=== PATIENT | male | born 1955 | race Caucasian/White ===

== ENCOUNTER 2022-02-21 14:17 | Inpatient (IN) ==
[2022-02-21 14:54] LABS: Basophils # (auto) 0.04 K/uL (0-0.2); Basophils % (auto) 0.7 %; Eosinophils # (auto) 0.08 K/uL (0-0.5); Eosinophils % (auto) 1.5 %; Hematocrit (blood only) 42.6 % (42-52); Hemoglobin 13.9 g/dL (14.0-18.0); Immature Granulocytes # (auto) 0.01 K/uL (0.00-0.02); Immature Granulocytes % (auto) 0.2 %; Lymphocytes # (auto) 1.48 K/uL (1.2-3.4); Lymphocytes % (auto) 27.7 %; Mean Corpuscular Hemoglobin 30.1 pg (25-34); Mean Corpuscular Hgb Conc 32.6 g/dL (32-36); Mean Corpuscular Volume 92.2 fL (80-100); Monocytes % (auto) 5.6 %; Neutrophils # (auto) 3.43 K/uL (1.4-6.5); Neutrophils % (auto) 64.3 %; Platelet Count 256 K/uL (130-400); RDW Coefficient of Variation 13.4 % (11.5-14.5); RDW Standard Deviation 45.2 fL (36.4-46.3); Red Blood Count 4.62 M/uL (4.7-6.1); White Blood Count 5.34 K/uL (4.8-10.8)
--- NOTE | 2022-02-21 15:02 | XRay Report ---
XR chest 1V portable HISTORY: Atypical chest pain and tightness. COMPARISON: None. FINDINGS: There are low lung volumes. Small linear density within the right midlung zone favors scarr ing or subsegmental atelectasis. Otherwise, no focal lung consolidations to suggest pneumonia. No renee dence for pulmonary edema. No pleural effusions. No pneumothorax. The cardiac silhouette is normal in size. No rib fractures identified. IMPRESSION: No acute process. ACT 112: Negative or not required by law. Electronically signed by: Trevor Thomas M.D. 02/21/2022 3:00 PM
--- NOTE | 2022-02-21 15:14 | Emergency Department Note ---
Impression & Plan Angina pectoris, unstable, Hypertension, Chest pain ED Provider Note Provider: Kar Archer MD DATE OF SERVICE: 02/21/2022 CHIEF COMPLAINT: Intermittent chest pain HISTORY OF PRESENT ILLNESS: Patient is a 66-year-old gentleman history of hypertension referred here today from cardiology office for intermittent chest pain developing over the past 3 weeks. Patient with some exertional chest discomfort developing over the last several weeks. Evidently was at [facility] last week observed overnight. Referred for cardiology evaluation today. Patient referred here after this with concerns for unstable angina with recommendation for further care here at the hospital and pursuing a cardiac catheterization. Patient with minimal to no chest discomfort on exam. States at times he gets pressure sensation but states it is minimal to not there at this time. Denies any abdominal pain or symptoms here. Denies shortness of breath. Patient denies leg swelling. Patient denies a cardiac history previously himself. REVIEW OF SYSTEMS: A total of 10 review of systems was obtained and negative except as stated above in the HPI. PAST MEDICAL HISTORY: As noted above MEDICATIONS: Reviewed home medications include baby aspirin FMH: Cardiac history reported SOCIAL HISTORY: , non-smoker PHYSICAL EXAM: GENERAL: alert and oriented in no acute distress on stretcher Head: normocephalic and atraumatic EYES: No injection, discharge or icterus. NECK: Trachea midline. Supple. ENT: Mucous membranes pink and moist. LUNGS: Airway patent. No retractions. Breath sounds clear HEART: Regular rate and rhythm. No chest wall tenderness ABDOMEN: Soft and non-tender, without guarding or rebound. SKIN: Acyanotic, warm, dry, without rashes EXTREMITIES: Without swelling, tenderness or deformity NEUROLOGICAL: No focal deficits. No aphasia. No facial droop or slurred speech. Ambulatory. EK bpm normal sinus rhythm without PVC or PAC. No acute ST segment elevation with some anterior T wave inversions as well as questionable V4 V5 T wave changes. QTc 409. CONTINUOUS CARDIAC MONITORING: was ordered and showed a heart rate of 60s-70s bpm in normal sinus rhythm Patient's laboratory studies and imaging reviewed. Differential includes Cardiac ischemia, aortic dissection, pulmonary embolism, pneumothorax, pneumonia, pericarditis, myocarditis, esophageal rupture, GERD, cholecystitis, pancreatitis, musculoskeletal, as well as other pathologies. IMPRESSION/MEDICAL DECISION MAKING: Patient presents with some concerning history of intermittent exertional chest discomfort. Seen by cardiology today concerning for possible unstable angina thus referred here. Patient EKG here initially without STEMI and minimal symptoms now although question some anterior T wave changes. Some nonspecific ST changes in V5 and V4 noted. Troponin and basic labs were sent. Doubt this represents the given his lack of hypoxia or tachycardia. Given additional aspirin beyond the baby aspirin he takes every day. Chest x-ray obtained. Discussed with patient further care at the hospital with cardiac evaluation and possible need for cardiac catheterization given concern for unstable angina. Hospitalist contacted. DIAGNOSIS: Unstable angina, hypertension, chest pain DISPOSITION: Hospitalist will evaluate Patient was agreeable with this plan. Past Med/Surg History Medical History (Updated 02/21/22 @ 21:09 by Kar Archer M.D.) Arthritis Hyperlipidemia Hypertension Hypothyroidism Migraine HX Obesity Pulmonary embolism 2013 S/P SHOULDER SURGERY-WAS ON BLOOD THINNERS X 1 YR-NO ISSUES SINCE Surgical History History of arthroscopy R/L KNEES History of colonoscopy X 4 History of hand surgery TENDON REPAIR FINGER History of hand surgery CYST REMOVAL History of repair of rotator cuff RIGHT 2013 Family History Mother Family history of diabetes mellitus Social History Smoking Status: Never smoker Second Hand Exposure: Yes (FATHER SMOKED); Do You Dip or Chew Tobacco: No; Hx Alcohol Use: Yes Alcohol type: beer Hx Substance Use: No Preferred Language: Lithuanian Communication Ability: Effective [employer] Required: No Beliefs That Will Affect Care: None Current Living Situation: Spouse 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 Other Information That Helps Us Care for You: No Feels Safe at Home: Yes Safety Concerns: Feels Safe At This Time Assistive Devices: Glasses Allergies Allergies Allergy/AdvReac Type Severity Reaction Status Date / Time No Known Allergies Allergy Verified 02/21/22 16:04 Home Meds Home Medications Medication Instructions Recorded Confirmed levothyroxine 125 mcg tablet 125 mcg PO QAM 07/07/21 02/21/22 lisinopril 10 mg tablet 10 mg PO QAM 07/07/21 02/21/22 aspirin 81 mg tablet,delayed 81 mg PO HS 02/21/22 02/21/22 release kqilkoq-rojnnsyemwjcg-uvezypwi 250 1 tab PO Q6H PRN 02/21/22 02/21/22 mg-250 mg-65 mg tablet (Excedrin Extra Strength) pantoprazole 40 mg tablet,delayed 40 mg PO QAM 02/21/22 02/21/22 release rosuvastatin 20 mg tablet 20 mg PO DAILY 02/21/22 02/21/22 Results & Data (ED) Vital Signs Vital Signs - 24 hr 02/21/22 14:23 02/21/22 15:28 Temperature 36.7 C Temperature Source Oral Pulse Rate 73 Pulse Rate [Right Finger] 60 Respiratory Rate 18 18 Respiratory Effort / Characteristics Non-Labored Respiratory Depth Normal Blood Pressure 157/83 H Blood Pressure [Right Arm] 148/71 H Blood Pressure Mean 107 Blood Pressure Mean [Right Arm] 96 Pulse Oximetry 97 95 Oxygen Delivery Method Room Air Room Air Sepsis Recent Fever Within 48 Hours No Sepsis New/Unexplained Change in Mental Status No Sepsis Action Taken by Nursing No Action Required Laboratory Data Result diagrams: 02/21/22 14:37 02/21/22 14:37 Lab Results 02/21/22 02/21/22 02/21/22 Range/Units 14:37 14:37 14:37 WBC 5.34 (4.8-10.8) K/uL RBC 4.62 L (4.7-6.1) M/uL Hgb 13.9 L (14.0-18.0) g/dL Hct 42.6 (42-52) % MCV 92.2 (80-100) fL MCH 30.1 (25-34) pg MCHC 32.6 (32-36) g/dL RDW Std Deviation 45.2 (36.4-46.3) fL RDW Coeff of Erika 13.4 (11.5-14.5) % Plt Count 256 (130-400) K/uL MPV 10.0 (7.4-10.4) fL Immature Gran % (Auto) 0.2 % Neut % (Auto) 64.3 % Lymph % (Auto) 27.7 % Ceiba % (Auto) 5.6 % Eos % (Auto) 1.5 % Baso % (Auto) 0.7 % Neut # (Auto) 3.43 (1.4-6.5) K/uL Lymph # (Auto) 1.48 (1.2-3.4) K/uL Ceiba # (Auto) 0.30 (0.11-0.59) K/uL Eos # (Auto) 0.08 (0-0.5) K/uL Baso # (Auto) 0.04 (0-0.2) K/uL Immature Gran # (Auto) 0.01 (0.00-0.02) K/uL PT 10.8 (9.0-12.0) Seconds INR 1.0 (0.9-1.1) Sodium 138 (136-145) mmol/L Potassium 4.3 (3.5-5.1) mmol/L Chloride 106 (98-107) mmol/L Carbon Dioxide 25 (21-32) mmol/L Anion Gap 7 (3-11) BUN 20 (6-23) mg/dl Creatinine 1.18 (0.6-1.4) mg/dl Est Cr Clr Drug Dosing 84.6 ml/min Est GFR ( Amer) 73.1 ml/min Est GFR (Non-Af Amer) 63.0 ml/min BUN/Creatinine Ratio 16.9 (10-20) Glucose 103 H (70-99(Fasting)) mg/dl Calcium 10.3 H (8.5-10.1) mg/dl Total Bilirubin 0.4 (0.2-1.0) mg/dl AST 19 (13-39) U/L ALT 23 (7-52) U/L Alkaline Phosphatase 78 (34-104) U/L Troponin I High Sens 11.3 (0-20) pg/ml Total Protein 7.5 (6.0-8.3) gm/dl Albumin 4.4 (3.4-5.0) gm/dl Globulin 3.1 (2.5-4.0) gm/dl Albumin/Globulin Ratio 1.4 (0.9-2) Lipase 29 (11-82) U/L TSH (0.300-4.500) uIu/ml SARS-CoV-2, RNA, NAAT (NEGATIVE) 02/21/22 02/21/22 Range/Units 14:37 15:26 WBC (4.8-10.8) K/uL RBC (4.7-6.1) M/uL Hgb (14.0-18.0) g/dL Hct (42-52) % MCV (80-100) fL MCH (25-34) pg MCHC (32-36) g/dL RDW Std Deviation (36.4-46.3) fL RDW Coeff of Erika (11.5-14.5) % Plt Count (130-400) K/uL MPV (7.4-10.4) fL Immature Gran % (Auto) % Neut % (Auto) % Lymph % (Auto) % Ceiba % (Auto) % Eos % (Auto) % Baso % (Auto) % Neut # (Auto) (1.4-6.5) K/uL Lymph # (Auto) (1.2-3.4) K/uL Ceiba # (Auto) (0.11-0.59) K/uL Eos # (Auto) (0-0.5) K/uL Baso # (Auto) (0-0.2) K/uL Immature Gran # (Auto) (0.00-0.02) K/uL PT (9.0-12.0) Seconds INR (0.9-1.1) Sodium (136-145) mmol/L Potassium (3.5-5.1) mmol/L Chloride (98-107) mmol/L Carbon Dioxide (21-32) mmol/L Anion Gap (3-11) BUN (6-23) mg/dl Creatinine (0.6-1.4) mg/dl Est Cr Clr Drug Dosing ml/min Est GFR ( Amer) ml/min Est GFR (Non-Af Amer) ml/min BUN/Creatinine Ratio (10-20) Glucose (70-99(Fasting)) mg/dl Calcium (8.5-10.1) mg/dl Total Bilirubin (0.2-1.0) mg/dl AST (13-39) U/L ALT (7-52) U/L Alkaline Phosphatase (34-104) U/L Troponin I High Sens (0-20) pg/ml Total Protein (6.0-8.3) gm/dl Albumin (3.4-5.0) gm/dl Globulin (2.5-4.0) gm/dl Albumin/Globulin Ratio (0.9-2) Lipase (11-82) U/L TSH 2.518 (0.300-4.500) uIu/ml SARS-CoV-2, RNA, NAAT NEGATIVE (NEGATIVE) Imaging Data Radiologist's Impression: Chest X-Ray 02/21/22 14:41 XR chest 1V portable HISTORY: Atypical chest pain and tightness. COMPARISON: None. FINDINGS: There are low lung volumes. Small linear density within the right midlung zone favors scarring or subsegmental atelectasis. Otherwise, no focal lung consolidations to suggest pneumonia. No evidence for pulmonary edema. No pleural effusions. No pneumothorax. The cardiac silhouette is normal in size. No rib fractures identified. IMPRESSION: No acute process. ACT 112: Negative or not required by law. Electronically signed by: Trevor Thomas M.D. 02/21/2022 3:00 PM Discharge Plan Visit Data Chief Complaint: Abnormal Labs/Diagnostic Testing Stated Complaint: REF, CHEST PAIN, SOB, ABNORMAL EKG ED Provider: Kar Archer Discharge Problem: Angina pectoris, unstable, Hypertension, Chest pain Patient Disposition: Admitted As Inpatient Discharge Instructions Interventions: ED Discharge Assessment Last Done: 02/21/22 19:40
[2022-02-21 15:38] LABS: Prothrombin Time 10.8 Seconds (9.0-12.0)
[2022-02-21 15:49] LABS: Albumin Globulin Ratio 1.4 (0.9-2); Albumin Level 4.4 gm/dl (3.4-5.0); BUN Creatinine Ratio 16.9 (10-20); Bilirubin,Total 0.4 mg/dl (0.2-1.0); Calcium 10.3 mg/dl (8.5-10.1); Creatinine Clr Calc Pharmacy 84.6 ml/min; Est GFR (African American) 73.1 ml/min; Globulin 3.1 gm/dl (2.5-4.0); Potassium 4.3 mmol/L (3.5-5.1); Total Protein 7.5 gm/dl (6.0-8.3); Troponin I High Sensitivity 11.3 pg/ml (0-20)
--- NOTE | 2022-02-21 16:11 | History & Physical Report ---
Date of Service February 21, 2022 Assessment & Plan (1) Chest pain: (2) Abnormal cardiovascular stress test: (3) Hypertension: (4) Hyperlipidemia: (5) Hypothyroidism: (6) Obesity: Plan: This is a 58-year-old male who has significant past medical history of HTN, HLD, obesity, history of provoked PE after shoulder surgery, hypothyroidism, BPH who presents to ED at the referral of cardiology secondary to chest pain x3 weeks. Chest Pain vs. Stable Angina Abnormal Stress test admit to PCU consult cardiology pt had abn stress @ [facility], seen in clinic by Dr. Ford 02/21, referred to ED for likely cardiac cath NPO after midnight 1st trop negative, pt w/o cp cycle trops, repeat ecg will defer repeat echo to cards prn ntg a1c, lipid panel in a.m. HTN continue lisinopril HLD continue statin Morbid Obesity bmi 35.7 encourage lifestyle modifications DVT ppx: SQ Heparin Dispo:PCU, possible cath tomorrow FULL CODE PCP: Cayden Barclay PA-C Pt was seen and examined in collaboration with Dr. Chan, please see addendum History of Present Illness Chief Complaint: Chest pain off and on x 3 weeks Primary Care Provider: Cayden Zayas PA-C This is a 58-year-old male who has significant past medical history of HTN, HLD, obesity, history of provoked PE after shoulder surgery, hypothyroidism, BPH who presents to ED at the referral of cardiology secondary to chest pain x3 weeks. Patient was seen and evaluated in cardiology clinic today by Dr. Ford. He was referred secondary to persistent chest pain. Of significance patient did present to [facility] on 02/14 and was admitted for ischemic work-up. Initial ischemic work-up was unremarkable. He did undergo nuclear stress test images were read as no ischemia, a prior bit bender EKG was positive for ischemic changes with [address] segment depressions in inferior and lateral leads. He was discharged to home and encouraged to follow-up with bit bender as outpatient. In clinic today patient described chest discomfort has been ongoing for 3 weeks. It mostly occurs with exertion in the center of his chest with associated shortness of breath. This was noted when he was on the golf course and taking out the trash. When he would stop and rest this would aid in his discomfort. Baseline he is very active in bowling and golf. He states he tried tums and it seems to help. He describes it as a heavines/dullness. It happened yesterday when he was golfing and stopped with rest. CP is substernal, nonradiating, lasts 5 min or less, assoc with sob, rest and tums helps, exertion makes worse and has never had in past. He denies any recent illness or fever. He has had a cough fo several months due to post nasal drip and what he feels is seasonal allergies. He denies hx of COPD but hx of multiple PE after shoulder surgery. He was on blood thinner for a year and then it stopped. He denies any prior hx of CAD. HE does have strong FH of CAD, sister, mother and maternal grandmother in 70s had sudden . He denies smoking. Does have a couple beers with playing golf. He further denies any dizziness, lightheaded, syncope, palpitations, URI sx, n/v/d, abd pain, change in bowel or bladder habits. He has been on a baby asa x 1 week. He also started pantoprazole 5 days ago w/o improvement. Allergies Allergy/AdvReac Type Severity Reaction Status Date / Time No Known Allergies Allergy Verified 02/21/22 16:04 Home Medications Medication Instructions Recorded Confirmed Type levothyroxine 125 mcg tablet 125 mcg PO QAM 07/07/21 02/21/22 History lisinopril 10 mg tablet 10 mg PO QAM 07/07/21 02/21/22 History aspirin 81 mg tablet,delayed 81 mg PO HS 02/21/22 02/21/22 History release nyhbfmp-uaxzpprujytmj-mefwkufy 250 1 tab PO Q6H PRN 02/21/22 02/21/22 History mg-250 mg-65 mg tablet (Excedrin Extra Strength) pantoprazole 40 mg tablet,delayed 40 mg PO QAM 02/21/22 02/21/22 History release rosuvastatin 20 mg tablet 20 mg PO DAILY 02/21/22 02/21/22 History Past Med/Surg History Medical History (Updated 02/21/22 @ 17:02 by Adriana Santos PA-C) Arthritis Hyperlipidemia Hypertension Hypothyroidism Migraine HX Obesity Pulmonary embolism 2013 S/P SHOULDER SURGERY-WAS ON BLOOD THINNERS X 1 YR-NO ISSUES SINCE Surgical History History of arthroscopy R/L KNEES History of colonoscopy X 4 History of hand surgery TENDON REPAIR FINGER History of hand surgery CYST REMOVAL History of repair of rotator cuff RIGHT 2014 Family History Mother Family history of diabetes mellitus Social History Smoking Status: Never smoker Second Hand Exposure: Yes (FATHER SMOKED); Hx Alcohol Use: Yes Alcohol type: beer and hard liquor Hx Substance Use: No Preferred Language: Indian Communication Ability: Effective Narcotics Agent Required: No Beliefs That Will Affect Care: None Current Living Situation: Spouse 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 Normal insp/exp effort, no accessory muscle use Cardiovascular: RRR, no murmur, no edema Vessels: no JVD or carotid bruit Chest: normal inspection of chest Abdomen: obesity, normal bowel sounds, soft, nontender, no hepatosplenomegaly Musculoskeletal: no cyanosis or clubbing, extremities motor strength 5/5 Skin: no rashes, warm and dry normal turgor Neurologic: PERRL, EOMI, accommodation nl, no face palsy, no dysarthria CN's II-XI intact bilaterally and moves all extremities Psychiatric: A+Ox3, euthymic affect Lymphatic: no cervical or axillary lymphadenopathy : deferred Results & Data Results & Data ([facility]) Vital Signs (Past 12 Hours) Vital Signs Temp Pulse Pulse Resp BP BP Pulse Ox 02/21/22 15:28 60 18 148/71 H 95 02/21/22 14:23 36.7 C 73 18 157/83 H 97 Diagnostic Findings Chest X-Ray 02/21/22 14:41 XR chest 1V portable HISTORY: Atypical chest pain and tightness. COMPARISON: None. FINDINGS: There are low lung volumes. Small linear density within the right midlung zone favors scarring or subsegmental atelectasis. Otherwise, no focal lung consolidations to suggest pneumonia. No evidence for pulmonary edema. No pleural effusions. No pneumothorax. The cardiac silhouette is normal in size. No rib fractures identified. IMPRESSION: No acute process. ACT 112: Negative or not required by law. Electronically signed by: Trevor Thomas M.D. 02/21/2022 3:00 PM ECG Rate (beats per minute): 73 Rhythm: normal sinus Findings: + T-wave inversion (V2) COVID-19 Results Results COVID-19 Adm Lab Results: RBC 4.62 M/uL (4.7-6.1) L 02/21/22 WBC 5.34 K/uL (4.8-10.8) 02/21/22 Hgb 13.9 g/dL (14.0-18.0) L 02/21/22 Hct 42.6 % (42-52) 02/21/22 Plt Count 256 K/uL (130-400) 02/21/22 Neutrophils (%) (Auto) 64.3 % 02/21/22 Lymphocytes (%) (Auto) 27.7 % 02/21/22 Monocytes # (Auto) 0.30 K/uL (0.11-0.59) 02/21/22 Eosinophils # (Auto) 0.08 K/uL (0-0.5) 02/21/22 Immature Granulocyte % (Auto) 0.2 % 02/21/22 Neutrophils # (Auto) 3.43 K/uL (1.4-6.5) 02/21/22 Lymphocytes # (Auto) 1.48 K/uL (1.2-3.4) 02/21/22 Monocytes # (Auto) 0.30 K/uL (0.11-0.59) 02/21/22 Eosinophils # (Auto) 0.08 K/uL (0-0.5) 02/21/22 Basophils # (Auto) 0.04 K/uL (0-0.2) 02/21/22 Immature Granulocyte # (Auto) 0.01 K/uL (0.00-0.02) 02/21/22 Na 138 mmol/L (136-145) 02/21/22 K 4.3 mmol/L (3.5-5.1) 02/21/22 Cl 106 mmol/L (98-107) 02/21/22 CO2 25 mmol/L (21-32) 02/21/22 Anion Gap 7 (3-11) 02/21/22 BUN 20 mg/dl (6-23) 02/21/22 Creatinine 1.18 mg/dl (0.6-1.4) 02/21/22 BUN/Creatinine Ratio 16.9 (10-20) 02/21/22 Glucose Level 103 mg/dl (70-99(Fasting)) H 02/21/22 Ca 10.3 mg/dl (8.5-10.1) H 02/21/22 Total Bilirubin 0.4 mg/dl (0.2-1.0) 02/21/22 AST/SGOT 19 U/L (13-39) 02/21/22 ALT/SGPT 23 U/L (7-52) 02/21/22 Alkaline Phosphatase 78 U/L (34-104) 02/21/22 Total Protein 7.5 gm/dl (6.0-8.3) 02/21/22 Albumin 4.4 gm/dl (3.4-5.0) 02/21/22 Globulin 3.1 gm/dl (2.5-4.0) 02/21/22 Albumin/Globulin Ratio 1.4 (0.9-2) 02/21/22 INR 1.0 (0.9-1.1) 02/21/22 SARS-CoV-2, RNA, NAAT NEGATIVE (NEGATIVE) 02/21/22 Chest X-Ray 02/21/22 Code Status & VTE Plan Code Status FULL CODE VTE Prophylaxis Plan VTE Prophylaxis will be ordered: Yes Supervising Physician Co-Signing Physician Notes Patient is a 58-year-old male with history of hypertension, hyperlipidemia, obesity and other medical problems presents on referral from his primary bit bender for evaluation of ongoing chest pain which has been intermittent, retrosternal since 3 weeks duration patient describes the chest pain like he aviness/pressure-like sensation, nonradiating, associated with shortness of breath, worsens with exertion and occasionally improves with Tums. Patient states having significant family history of coronary artery disease. Patient had stress test 1 week ago which was inconclusive as per patient. Please review HPI for complete details of presentation. Blood work reviewed. TSH level pending. Initial troponin negative. Chest x-ray showed no acute process. EKG showed normal sinus rhythm, nonspecific ST-T wave changes. On exam patient is obese, no apparent distress, normocephalic atraumatic, EOMI, normal breath sounds, clear to auscultation, S1-S2, no murmur, no pedal edema, abdomen soft, nontender, normal bowel sounds, alert, awake, oriented, grossly no focal deficits. Patient is admitted for management of chest pain rule out ACS. Likely stable angina. Continue aspirin, statin. Will trend cardiac enzymes, check lipid panel, A1c. Keep him n.p.o. after midnight for possible cardiac catheterization tomorrow. Will consult cardiology. I personally reviewed the record. Patient is interviewed and examined at bedside. Patient's care is coordinated with Adriana Santos PA-C. Please refer to the documentation above for details of patient's presentation and for discussion of other issues.
[2022-02-21] MEDS ORDERED: POLYETHYLENE (MIRALAX) 17 GM PACK PO PRN (20:26)
[2022-02-21] MEDS ORDERED: NITROGLYCERIN SL 0.4 MG/TAB TAB SL PRN (20:26)
[2022-02-21] MEDS ORDERED: ONDANSETRON INJ 2 MG/ML 2 ML VIAL IV PRN (20:26)
[2022-02-21] MEDS ORDERED: ALUMINUM/MAGNESIUM SUSP 30 ML UDC PO PRN (20:26)
[2022-02-21] MEDS ORDERED: MAGNESIUM HYDROXIDE SUSP 30 ML UDC PO PRN (20:26)
[2022-02-21] MEDS: ASPIRIN 81 MG ECTAB PO SCH (21:42)
[2022-02-21] MEDS: HEPARIN SOD 5,000 UNIT/0.5 ML VIAL SQ SCH (21:42)
[2022-02-21] MEDS: ACETAMINOPHEN 325 MG TAB PO PRN (21:50)
[2022-02-22 02:58] LABS: Albumin Globulin Ratio 1.5 (0.9-2); Albumin Level 3.9 gm/dl (3.4-5.0); BUN Creatinine Ratio 16.5 (10-20); Bilirubin,Total 0.4 mg/dl (0.2-1.0); Calcium 9.7 mg/dl (8.5-10.1); Creatinine Clr Calc Pharmacy 92.3 ml/min; Est GFR (African American) 80.4 ml/min; Est GFR (Non-African American) 69.4 ml/min; Globulin 2.6 gm/dl (2.5-4.0); Magnesium 2.1 mg/dl (1.7-2.4); Potassium 4.3 mmol/L (3.5-5.1); Total Protein 6.5 gm/dl (6.0-8.3)
[2022-02-22 02:59] LABS: Basophils # (auto) 0.03 K/uL (0-0.2); Basophils % (auto) 0.5 %; Eosinophils # (auto) 0.12 K/uL (0-0.5); Eosinophils % (auto) 2.2 %; Hematocrit (blood only) 39.9 % (42-52); Lymphocytes % (auto) 44.8 %; Mean Corpuscular Hemoglobin 29.7 pg (25-34); Mean Corpuscular Hgb Conc 32.6 g/dL (32-36); Mean Corpuscular Volume 91.3 fL (80-100); Mean Platelet Volume 9.5 fL (7.4-10.4); Monocytes # (auto) 0.42 K/uL (0.11-0.59); Monocytes % (auto) 7.5 %; Neutrophils # (auto) 2.51 K/uL (1.4-6.5); Platelet Count 228 K/uL (130-400); RDW Coefficient of Variation 13.4 % (11.5-14.5); RDW Standard Deviation 44.8 fL (36.4-46.3); Red Blood Count 4.37 M/uL (4.7-6.1); White Blood Count 5.58 K/uL (4.8-10.8)
[2022-02-22 03:02] LABS: Troponin I High Sensitivity 8.6 pg/ml (0-20)
[2022-02-22 03:12] LABS: Chol HDL Ratio 3.8 (0-5)
[2022-02-22] MEDS: ACETAMINOPHEN 325 MG TAB PO PRN ×2 (04:42→15:57)
[2022-02-22] MEDS: HEPARIN SOD 5,000 UNIT/0.5 ML VIAL SQ SCH (06:02)
[2022-02-22] MEDS: LEVOTHYROXINE SODIUM 125 MCG TABLET PO SCH (06:02)
[2022-02-22 06:51] LABS: Estimated Average Glucose 114 mg/dl; Hemoglobin A1C 5.6 % (4.5-5.6)
[2022-02-22] MEDS: lisinopril 10 MG TAB PO SCH (07:58)
[2022-02-22] MEDS: PANTOprazole 40 MG TAB PO SCH (07:59)
[2022-02-22] MEDS: ROSUVASTATIN CALCIUM 20 MG TAB PO SCH ×2 (07:59→09:36)
--- NOTE | 2022-02-22 08:25 | Cardiology Consultation ---
Date of Consultation February 22, 2022 Assessment & Plan (1) Angina pectoris, unstable: (2) Hyperlipidemia: (3) Abnormal cardiovascular stress test: (4) Hypertension: I have explained the risk, benefit and intent of the cardiac catheterization including the potential for catheter-based intervention such as balloon angioplasty or intracoronary stenting. The patient is willing to proceed and the procedure will be completed later today. History of Present Illness Attending Physician: Sen Gonzáles MD History of Present Illness This is a 66-year-old male patient who was seen in our clinic yesterday by Dr. Ford. Approximately 3 weeks ago he began to have exertional chest pain. He was admitted last week to [facility] and after an initial work-up he underwent a nuclear stress test that was read as low probability. He has continued to have symptoms of chest pain which are suggestive of angina and was seen in our clinic yesterday. He was sent for admission and consideration for a cardiac catheterization. PAST MEDICAL HISTORY: 1. Hypertension 2. Pulmonary embolism after shoulder surgery 3. Dyslipidemia 4. BPH 5. Elevated BMI Allergies Allergy/AdvReac Type Severity Reaction Status Date / Time No Known Allergies Allergy Verified 02/21/22 16:04 Home Medications Medication Instructions Recorded Confirmed Type levothyroxine 125 mcg tablet 125 mcg PO QAM 07/07/21 02/21/22 History lisinopril 10 mg tablet 10 mg PO QAM 07/07/21 02/21/22 History aspirin 81 mg tablet,delayed 81 mg PO HS 02/21/22 02/21/22 History release scagbss-omlciwxyaffzn-laeolxqz 250 1 tab PO Q6H PRN 02/21/22 02/21/22 History mg-250 mg-65 mg tablet (Excedrin Extra Strength) pantoprazole 40 mg tablet,delayed 40 mg PO QAM 02/21/22 02/21/22 History release rosuvastatin 20 mg tablet 20 mg PO DAILY 02/21/22 02/21/22 History Patient History Medical History Arthritis Hyperlipidemia Hypertension Hypothyroidism Migraine HX Obesity Pulmonary embolism 2013 S/P SHOULDER SURGERY-WAS ON BLOOD THINNERS X 1 YR-NO ISSUES SINCE Surgical History History of arthroscopy R/L KNEES History of colonoscopy X 4 History of hand surgery TENDON REPAIR FINGER History of hand surgery CYST REMOVAL History of repair of rotator cuff RIGHT 2014 Family History Mother Family history of diabetes mellitus Social History Smoking Status: Never smoker Second Hand Exposure: Yes (FATHER SMOKED); Do You Dip or Chew Tobacco: No; Hx Alcohol Use: Yes Alcohol type: beer Hx Substance Use: No Preferred Language: Estonian Communication Ability: Effective Skip Locator Required: No Beliefs That Will Affect Care: None Current Living Situation: Spouse 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 All other 10 point review of systems are negative. Physical Exam Physical Exam: General: no acute distress and stated age Head: normocephalic, no masses, lesions, tenderness or abnormalities Eyes: conjunctiva are pink and non-injected, sclera clear Neck: supple, no adenopathy, no bruits, normal jugular venous pulse, no hepatojugular reflux Chest: normal shape and normal respiratory effort Lungs: clear to auscultation and percussion Cardiac Exam: - regular rate & rhythm, no murmurs gallops or rubs - normal S1, normal S2 Pulses: 2(+) throughout Abdomen: abdomen soft, non-tender, no abnormal masses and no hepatosplenomegaly Musculoskeletal: no gait disturbance, no joint inflammation, no deforming arthritis Extremities: no edema and no cyanosis Neuro: grossly normal exam Results & Data ([facility]) Vital Signs (Past 12 Hours) Vital Signs Temp Pulse Resp BP Pulse Ox 02/22/22 07:21 36.6 C 50 L 16 157/88 H 97 02/22/22 04:41 36.6 C 52 L 16 147/89 H 97 02/21/22 23:38 36.8 C 54 L 18 130/79 98 Laboratory Results Laboratory Results - last 24 hr 02/21/22 02/21/22 02/21/22 14:37 14:37 14:37 WBC 5.34 RBC 4.62 L Hgb 13.9 L Hct 42.6 MCV 92.2 MCH 30.1 MCHC 32.6 RDW Std Deviation 45.2 RDW Coeff of Erika 13.4 Plt Count 256 MPV 10.0 Immature Gran % (Auto) 0.2 Neut % (Auto) 64.3 Lymph % (Auto) 27.7 Addison % (Auto) 5.6 Eos % (Auto) 1.5 Baso % (Auto) 0.7 Neut # (Auto) 3.43 Lymph # (Auto) 1.48 Addison # (Auto) 0.30 Eos # (Auto) 0.08 Baso # (Auto) 0.04 Immature Gran # (Auto) 0.01 PT 10.8 INR 1.0 Sodium 138 Potassium 4.3 Chloride 106 Carbon Dioxide 25 Anion Gap 7 BUN 20 Creatinine 1.18 Est Cr Clr Drug Dosing 84.6 Est GFR ( Amer) 73.1 Est GFR (Non-Af Amer) 63.0 BUN/Creatinine Ratio 16.9 Glucose 103 H Estimat Average Glucose Hemoglobin A1c Calcium 10.3 H Magnesium Total Bilirubin 0.4 AST 19 ALT 23 Alkaline Phosphatase 78 Troponin I High Sens 11.3 Total Protein 7.5 Albumin 4.4 Globulin 3.1 Albumin/Globulin Ratio 1.4 Triglycerides Cholesterol LDL Cholesterol, Calc VLDL Cholesterol, Calc HDL Cholesterol Cholesterol/HDL Ratio Lipase 29 TSH Hepatitis C Ab (EIA) Hep C Ab Signal/Cutoff SARS-CoV-2, RNA, NAAT 02/21/22 02/21/22 02/21/22 14:37 15:26 20:29 WBC RBC Hgb Hct MCV MCH MCHC RDW Std Deviation RDW Coeff of Erika Plt Count MPV Immature Gran % (Auto) Neut % (Auto) Lymph % (Auto) Addison % (Auto) Eos % (Auto) Baso % (Auto) Neut # (Auto) Lymph # (Auto) Addison # (Auto) Eos # (Auto) Baso # (Auto) Immature Gran # (Auto) PT INR Sodium Potassium Chloride Carbon Dioxide Anion Gap BUN Creatinine Est Cr Clr Drug Dosing Est GFR ( Amer) Est GFR (Non-Af Amer) BUN/Creatinine Ratio Glucose Estimat Average Glucose Hemoglobin A1c Calcium Magnesium Total Bilirubin AST ALT Alkaline Phosphatase Troponin I High Sens 10.3 Total Protein Albumin Globulin Albumin/Globulin Ratio Triglycerides Cholesterol LDL Cholesterol, Calc VLDL Cholesterol, Calc HDL Cholesterol Cholesterol/HDL Ratio Lipase TSH 2.518 Hepatitis C Ab (EIA) Hep C Ab Signal/Cutoff SARS-CoV-2, RNA, NAAT NEGATIVE 02/22/22 02/22/22 02/22/22 02:03 02:03 02:03 WBC 5.58 RBC 4.37 L Hgb 13.0 L Hct 39.9 L MCV 91.3 MCH 29.7 MCHC 32.6 RDW Std Deviation 44.8 RDW Coeff of Erika 13.4 Plt Count 228 MPV 9.5 Immature Gran % (Auto) 0.0 Neut % (Auto) 45.0 Lymph % (Auto) 44.8 Addison % (Auto) 7.5 Eos % (Auto) 2.2 Baso % (Auto) 0.5 Neut # (Auto) 2.51 Lymph # (Auto) 2.50 Addison # (Auto) 0.42 Eos # (Auto) 0.12 Baso # (Auto) 0.03 Immature Gran # (Auto) 0.00 PT INR Sodium 137 Potassium 4.3 Chloride 106 Carbon Dioxide 25 Anion Gap 6 BUN 18 Creatinine 1.09 Est Cr Clr Drug Dosing 92.3 Est GFR ( Amer) 80.4 Est GFR (Non-Af Amer) 69.4 BUN/Creatinine Ratio 16.5 Glucose 93 Estimat Average Glucose Hemoglobin A1c Calcium 9.7 Magnesium 2.1 Total Bilirubin 0.4 AST 16 ALT 20 Alkaline Phosphatase 65 Troponin I High Sens 8.6 Total Protein 6.5 Albumin 3.9 Globulin 2.6 Albumin/Globulin Ratio 1.5 Triglycerides 214 H Cholesterol 167 LDL Cholesterol, Calc 80 VLDL Cholesterol, Calc 43 H HDL Cholesterol 44 Cholesterol/HDL Ratio 3.8 Lipase TSH Hepatitis C Ab (EIA) Pending Hep C Ab Signal/Cutoff Pending SARS-CoV-2, RNA, NAAT 02/22/22 02:03 WBC RBC Hgb Hct MCV MCH MCHC RDW Std Deviation RDW Coeff of Erika Plt Count MPV Immature Gran % (Auto) Neut % (Auto) Lymph % (Auto) Addison % (Auto) Eos % (Auto) Baso % (Auto) Neut # (Auto) Lymph # (Auto) Addison # (Auto) Eos # (Auto) Baso # (Auto) Immature Gran # (Auto) PT INR Sodium Potassium Chloride Carbon Dioxide Anion Gap BUN Creatinine Est Cr Clr Drug Dosing Est GFR ( Amer) Est GFR (Non-Af Amer) BUN/Creatinine Ratio Glucose Estimat Average Glucose 114 Hemoglobin A1c 5.6 Calcium Magnesium Total Bilirubin AST ALT Alkaline Phosphatase Troponin I High Sens Total Protein Albumin Globulin Albumin/Globulin Ratio Triglycerides Cholesterol LDL Cholesterol, Calc VLDL Cholesterol, Calc HDL Cholesterol Cholesterol/HDL Ratio Lipase TSH Hepatitis C Ab (EIA) Hep C Ab Signal/Cutoff SARS-CoV-2, RNA, NAAT Medications Administered Current Inpatient Medications Acetaminophen (Acetaminophen 325 Mg Tab) 650 mg PO Q4H PRN PRN Reason: Pain or Fever Stop: 03/23/22 20:25 Last Admin: 02/22/22 04:42 Dose: 650 mg Documented by: Al Hydrox/Mg Hydrox/Simethicone (Aluminum/Magnesium Susp 30 Ml Udc) 15 ml PO Q4H PRN PRN Reason: Dyspepsia Stop: 03/23/22 20:25 Aspirin (Aspirin 81 Mg Ectab) 81 mg PO HS [facility] Stop: 03/23/22 20:59 Last Admin: 02/21/22 21:42 Dose: 81 mg Documented by: Heparin Sodium (Porcine) (Heparin Sod 5,000 Unit/0.5 Ml Vial) 5,000 units SQ Q8 [facility] Stop: 03/23/22 21:59 Last Admin: 02/22/22 06:02 Dose: 5,000 units Documented by: Levothyroxine Sodium (Levothyroxine Sodium 125 Mcg Tablet) 125 mcg PO DAILY@0630 [facility] Stop: 03/24/22 06:29 Last Admin: 02/22/22 06:02 Dose: 125 mcg Documented by: Lisinopril (Lisinopril 10 Mg Tab) 10 mg PO QAM [facility] Stop: 03/24/22 08:59 Last Admin: 02/22/22 07:58 Dose: 10 mg Documented by: Magnesium Hydroxide (Magnesium Hydroxide Susp 30 Ml Udc) 30 ml PO Q12H PRN PRN Reason: Constipation Stop: 03/23/22 20:25 Nitroglycerin (Nitroglycerin Sl 0.4 Mg/Tab Tab) 0.4 mg SL PRN PRN PRN Reason: chest pain Stop: 03/23/22 20:25 Ondansetron HCl (Ondansetron Inj 2 Mg/Ml 2 Ml Vial) 4 mg IV Q6H PRN PRN Reason: Nausea Stop: 03/23/22 20:25 Pantoprazole Sodium (Pantoprazole 40 Mg Tab) [facility] Stop: 03/24/22 08:59 Last Admin: 02/22/22 07:59 Dose: 40 mg Documented by: Polyethylene Glycol (Polyethylene (Miralax) 17 Gm Pack) 17 gm PO DAILY PRN PRN Reason: Constipation Stop: 03/23/22 20:25 Rosuvastatin Calcium (Rosuvastatin Calcium 20 Mg Tab) 20 mg PO DAILY [facility] Stop: 03/24/22 08:59 (1) Hypertension Hypertension type: unspecified Qualified Code(s): I10 - Essential (primary) hypertension
[2022-02-22] MEDS ORDERED: Nursing to Pharmacy Communication SCH (09:15)
[2022-02-22] MEDS ORDERED: niCARdipine HCL INJ 2.5 MG/ML 10 ML AMP ONE (12:12)
[2022-02-22] MEDS ORDERED: fentaNYL citrate 100 MCG/2 ML VIAL ONE (12:12)
[2022-02-22] MEDS ORDERED: HEPARIN (PORCINE) 1000 UNIT/ML 10 ML (CATH LAB USE ONLY) ONE ×2 (12:12→13:53)
[2022-02-22] MEDS ORDERED: MIDAZOLAM HCL 1 MG/ML 2ML VIAL ONE (12:12)
[2022-02-22] MEDS ORDERED: NITROGLYCERIN/D5W 100MCG/ML 20ML SYR ONE (12:13)
[2022-02-22] MEDS ORDERED: ADENOSINE IV SOLN 3 MG/ML 20 ML VIAL IV ONE ×2 (13:08→14:08)
--- NOTE | 2022-02-22 13:14 | Hospitalist Progress Note ---
Date of Service February 22, 2022 Assessment & Plan (1) Chest pain: (2) Abnormal cardiovascular stress test: (3) Hypertension: (4) Hyperlipidemia: (5) Hypothyroidism: (6) Obesity: Plan: This is a 58-year-old male who has significant past medical history of HTN, HLD, obesity, history of provoked PE after shoulder surgery, hypothyroidism, BPH who presents to ED at the referral of cardiology secondary to chest pain x3 weeks. Chest pain, concerning for unstable angina. recent abnormal stress test a week ago - seen by cardio. Plan for cardiac cath later today. NPO for the same. Essential hypertension- continue lisinopril Hyperlipidemia- continue statin Hypothyroidism- continue synthroid Dispo- Pending cardiac cath today. DVT ppx- sc heparin Admission and Anticipated Discharge Date Admission Date: February 21, 2022 Subjective He feels fine. Denies any chest pain currently at rest. He is awaiting cardiac cath- states three more ahead of him. Physical Exam Physical Exam: General: Sitting comfortably in bed, not in distress, on room air HEENT: EOMI, SHERMAN, MMM Chest: Clear breath sounds bilaterally, no wheezes or crackles CVS: Regular rate and rhythm, normal heart sounds, no murmur Abdomen: Soft, non tender, not distended, normal bowel sounds Neuro: Awake, alert, oriented, conversing well, non focal Extremities: No cyanosis, clubbing or edema Results & Data Results & Data ([facility]) Vital Signs (Past 12 Hours) Vital Signs Temp Pulse Resp BP Pulse Ox 02/22/22 11:17 36.5 C 54 L 18 171/92 H 98 02/22/22 07:21 36.6 C 50 L 16 157/88 H 97 02/22/22 04:41 36.6 C 52 L 16 147/89 H 97 Laboratory Results Short CBC 02/21/22 02/22/22 Range/Units 14:37 02:03 WBC 5.34 5.58 (4.8-10.8) K/uL Hgb 13.9 L 13.0 L (14.0-18.0) g/dL Hct 42.6 39.9 L (42-52) % Plt Count 256 228 (130-400) K/uL BMP 02/21/22 02/22/22 14:37 02:03 Sodium 138 137 Potassium 4.3 4.3 Chloride 106 106 Carbon Dioxide 25 25 BUN 20 18 Creatinine 1.18 1.09 Glucose 103 H 93 Calcium 10.3 H 9.7 Liver Function 02/21/22 02/22/22 Range/Units 14:37 02:03 Total Bilirubin 0.4 0.4 (0.2-1.0) mg/dl AST 19 16 (13-39) U/L ALT 23 20 (7-52) U/L Alkaline Phosphatase 78 65 (34-104) U/L Albumin 4.4 3.9 (3.4-5.0) gm/dl Medications Administered Current Inpatient Medications Acetaminophen (Acetaminophen 325 Mg Tab) 650 mg PO Q4H PRN PRN Reason: Pain or Fever Stop: 03/23/22 20:25 Last Admin: 02/22/22 04:42 Dose: 650 mg Documented by: Al Hydrox/Mg Hydrox/Simethicone (Aluminum/Magnesium Susp 30 Ml Udc) 15 ml PO Q4H PRN PRN Reason: Dyspepsia Stop: 03/23/22 20:25 Aspirin (Aspirin 81 Mg Ectab) 81 mg PO HS [facility] Stop: 03/23/22 20:59 Last Admin: 02/21/22 21:42 Dose: 81 mg Documented by: Heparin Sodium (Porcine) (Heparin Sod 5,000 Unit/0.5 Ml Vial) 5,000 units SQ Q8 [facility] Stop: 03/23/22 21:59 Last Admin: 02/22/22 06:02 Dose: 5,000 units Documented by: Levothyroxine Sodium (Levothyroxine Sodium 125 Mcg Tablet) 125 mcg PO DAILY@0630 [facility] Stop: 03/24/22 06:29 Last Admin: 02/22/22 06:02 Dose: 125 mcg Documented by: Lisinopril (Lisinopril 10 Mg Tab) 10 mg PO QAM [facility] Stop: 03/24/22 08:59 Last Admin: 02/22/22 07:58 Dose: 10 mg Documented by: Magnesium Hydroxide (Magnesium Hydroxide Susp 30 Ml Udc) 30 ml PO Q12H PRN PRN Reason: Constipation Stop: 03/23/22 20:25 Nitroglycerin (Nitroglycerin Sl 0.4 Mg/Tab Tab) 0.4 mg SL PRN PRN PRN Reason: chest pain Stop: 03/23/22 20:25 Ondansetron HCl (Ondansetron Inj 2 Mg/Ml 2 Ml Vial) 4 mg IV Q6H PRN PRN Reason: Nausea Stop: 03/23/22 20:25 Pantoprazole Sodium (Pantoprazole 40 Mg Tab) 40 mg PO QAM [facility] Stop: 03/24/22 08:59 Last Admin: 02/22/22 07:59 Dose: 40 mg Documented by: Polyethylene Glycol (Polyethylene (Miralax) 17 Gm Pack) 17 gm PO DAILY PRN PRN Reason: Constipation Stop: 03/23/22 20:25 Rosuvastatin Calcium (Rosuvastatin Calcium 20 Mg Tab) 20 mg PO HS [facility] Stop: 03/24/22 08:59 (1) Chest pain Chest pain type: unspecified Qualified Code(s): R07.9 - Chest pain, unspecified (2) Hypertension Hypertension type: unspecified Qualified Code(s): I10 - Essential (primary) hypertension
--- NOTE | 2022-02-22 13:42 | Cardiac Catheterization ---
Date of Service February 22, 2022 Cardiac Cath Report Cardiac Cath Report Procedure: 1. Left heart catheterization 2. Coronary angiography 3. Left ventriculogram History: This is a 66-year-old male patient who has been having exertional angina for several weeks. He was referred for cardiac catheterization. Procedure summary: After informed consent was obtained the patient was brought to the cardiac catheterization lab where he was prepped and draped in the usual manner for a right radial approach. Preformed 5 Albanian diagnostic catheters were utilized for the coronary angiograms. A 5 Albanian pigtail catheter was utilized for the left heart pressures and left ventriculogram. Following the procedure the patient underwent coronary intervention. ACC data: Start time 12:55 End time 13:20 Opening aortic pressure 138/82 Closing aortic pressure 153/78 Left ventricular pressure 150/5 Sedation 1 mg intravenous Versed IV fluid 55 cc normal saline Contrast 99 cc Optiray Fluoroscopy time 6.4 minutes Radiation 1511 mGy DAP 146.24 Lara per centimeter squared Right dominant system AUC score 7 Coronary angiography: Selective injections of the left coronary artery revealed the left main trunk to be patent. The LAD extends around the apex of the heart. The LAD gives off a single large first diagonal branch. In the proximal portion of the LAD there is a 50 to 70% eccentric stenoses. There is a large ramus branch from the left circumflex artery which has a 50 to 60% stenosis proximally. The left circumflex then continues on and supplies several small marginal branches. The remainder of the left circumflex artery is widely patent. Selective injections of the right coronary artery reveal it to be dominant. The right coronary artery is smooth in appearance widely patent and within normal limits. Left ventriculogram: The left ventricle is of normal size with normal systolic function. The mitral valve is competent. The aortic root and ascending aorta have normal morphology and diameter. Summary: The patient has a borderline proximal LAD stenoses that should undergo FFR or IFR. The proximal ramus should undergo the same. Coronary intervention will depend on the outcome of these measurements. Recommendations: Potential coronary intervention on the proximal LAD and ramus.
[2022-02-22] MEDS ORDERED: CLOPIDOGREL BISULFATE 300 MG TAB ONE (14:12)
[2022-02-22] MEDS ORDERED: SODIUM CHLORIDE 0.9% 1000ML 500 ML IV SCH (14:45)
--- NOTE | 2022-02-22 14:48 | Post Anesthesia Assessment ---
Date of Service February 22, 2022 Post Sedation Assessment Vital Signs Temp Pulse Resp BP Pulse Ox 02/22/22 14:45 53 L 16 157/71 H 98 02/22/22 14:30 47 L 16 154/85 H 98 02/22/22 11:17 97.7 F 54 L 18 171/92 H 98 02/22/22 07:21 97.9 F 50 L 16 157/88 H 97 02/22/22 04:41 97.9 F 52 L 16 147/89 H 97 02/21/22 23:38 98.2 F 54 L 18 130/79 98 02/21/22 20:10 98.4 F 55 L 18 145/97 H 98 02/21/22 17:19 57 L 17 158/89 H 97 02/21/22 15:28 60 18 148/71 H 95 Recovery Score Activity: Moves 4 extremities Respiration: Deep Breath/Cough Circulation: +/-20% PreAnes Value Consciousness: Fully Awake Oxygen Saturation: > 92% On Room Air Post Anesthesia Score: 10 Discharge Sedation Level of Care: Fast Track Phase II Post Sedation Plan On clinical assessment, the patient appears to have tolerated the sedation without complications. Patient is recovering as anticipated. Patient will continue to be monitored by nursing and may be discharged when sedation discharge criteria are met per below protocol. Upon Completions of procedure up to 15 minutes continue every 5 minute vital signs and the P.A.R. score; then discharge to a Phase I or Fast Track to Phase II per the following guidelines: * Discharge Patient to appropriate Phase II area if PAR is 8 or greater or return to pre- procedure baseline. The post - procedure orders will be as dir ected. * If PAR score is less than 8 or not return to pre-procedure baseline then patient will follow Phase I monitoring till PAR is reached for Phase II. The Phase I may be done in procedure room or may call to secure a Phase I area. * If naloxone or flumazenil are used for reversal, hold in Phase I for continued monitoring from when last reversal dose was given for a minimum of 60 minutes or longer pending the nurse and/or physician discretion of patient condition before discharge to Phase II. Please call the Sedation Physician to re-evaluate and complete post-note for discharge to Phase II area. Do NOT discharge from procedure sedation or Phase 1 until post- sedation evaluation note is complete by procedure /sedation MD Sedation Discharge Instructions to be given to the patient at discharge to home.
--- NOTE | 2022-02-22 14:50 | Post Operative Brief Note ---
Cardiology Brief Post Op Date of Surgery February 22, 2022 Pre & Post Diagnosis Operation Date: 02/22/22 12:30 <No data on this case meets the specified criteria> Procedure PCI to LAD Spring Repairer Helper Hand Leonardo Nayak MD Coffee Roaster Eva Estimated Blood Loss 10 Findings See Below Severe proximal LAD (80% by IVUS, MLA 3.5 mm2). Non-obstructive proximal ramus disease (FFR 0.9) Successful PCI of proximal LAD with single MACKENZIE (3.0 x 23 Xience; post-dilated with 3.5 NC). Drains Other Anesthesia Type RN Sedation Complications none Disposition Accompanied Patient To Recovery: No Disposition: PCU Overlapping Procedure I was present for: the critical portions of procedure. I was immediately available: during the entire case. Back up surgeon: was not required during procedure.
--- NOTE | 2022-02-22 17:13 | Cardiac Catheterization ---
[facility] Data: Precision Lens Generator Cardiac Status Clinical evaluation leading to the procedure CAD Presenation: Unstable angina Anginal Classification: CCS III Diagnostic Physicians Name: Leonardo Nayak MD Closure Device Recommendations: PCI without planned CABG Cardiac Cath Procedure Full Procedure Date February 22, 2022 Pre-Procedure Diagnosis Pre-Procedure Diagnosis: Angina AUC Score AUC Score: 7 Post-Procedure Diagnosis Post-Procedure Diagnosis: Severe CAD and Successful PCI Procedure(s) Performed Procedure(s) Performed: Coronary Angiography, Drug Eluting Stent, IVUS and Fractional Flow [place] Price Analyst Leonardo Nayak MD Propellant Charge Loader(s) Control Room Supervisor Estimated Blood Loss Estimated Blood Loss: 10 Medication(s) Medication(s): Clopidogrel, Fentanyl, Heparin, Nicardipine, Nitroglycerin and Versed Summary of Findings Indication: Refractory angina Access: 6 Fr right radial artery Catheters: EBU 3.5 guide Findings: For full details of patient's coronary angiography please see cath report dictated by Dr. Barrera. Briefly, patient found to have a 70% proximal, calcified LAD stenosis and a intermediate proximal ramus stenosis. Decision to proceed FFR and possible PCI. -- PCI -- Antithrombotic therapy: Heparin, clopidogrel Procedure: Left main cannulated with EBU 3.5 guide Pre-procedure flow AIME 3 BMW wire passed across lesion into distal LAD Prowater wire placed into distal ramus ACIST Catheter placed across LAD stenosis -Pd/Pa 0.87 ACIST Catheter placed across removed from LAD and placed across ramus stenosis -Pd/Pa 0.94 FFR 0.90 Decision to proceed with PCI of LAD [place] IVUS catheter placed across proximal LAD stenosis into mid vessel. Pullback revealed diffuse mild to moderately calcified disease up to 80% (MLA 3.5 mm) in proximal LAD extending back to ostium. No significant left main disease. Ostial/proximal LAD stented with 3.0 x 23 mm Xience drug-eluting stent ending before takeoff of first diagonal Stent post-dilated with 3.5 noncompliant balloon Repeat IVUS showed well apposed, well-expanded stent with no apparent edge complications. Residual moderate disease at bifurcation with D1 Repeat Pd/Pa increased to 0.94 IC vasodilators administered for spasm Post procedure AIME 3 flow, stent well expanded with minimal residual stenosis and no apparent cardiac complications. Arterial Closure: TR band Summary: 1. Multivessel coronary artery disease -70% calcified, proximal LAD (positive by Pd/Pa, 80% by IVUS). 50 to 60% proximal ramus (nonobstructive by FFR 0.90). 2. Successful PCI of proximal LAD with single drug-eluting stent (3.0 x 23 mm Xience; postdilated with 3.5 NC). Recommendations: To PCU for continued monitoring Loaded with clopidogrel 600 mg in Precision Lens Generator Continue dual-antiplatelet therapy for at least 6 months Continue statin, and ASCVD risk factor modification Consult cardiac Rehab Hemodynamics Rest Ao:: 138/82/106 Final Ao: 113/66/85 LV: -- Recommendations Recommendations: PCI without planned CABG Specimens Specimens: None Radiation Exposure (mGy) 3507 Contrast (mls) 140 Anesthesia moderate [id number] Procedural Complication(s) None Disposition PCU I attest to the content of the Intraoperative Record and any orders documented therein. Any exceptions are noted below. [facility] Card Cath Procedure Codes Cardiac Catheterization Procedure 1: Cardiovascular Cath Procedures: 76652 (Doppler) Pressure Wire Procedure 2: Cardiovascular Cath Procedures: 89330 (Doppler) Pressure Wire Addl vessel Therapeutic Services & Ancillary Proc Procedure 1: Cardiovascular Tx and Anc Procedures: 72130 IV Ultrasound (Coronary or Graft) Moderate Sedation Procedure 1: Sedation/Anesthesia: 25794 Mod Sedation by the same physician; Ea [id number] Minutes Stenting Procedure 1: Cardiovascular Stent Procedures: 15199 Perc transcatheter placement of intracoronary stent(s), with ang PG Care Time/CCT Total # of Minutes Spent Total Time Spent with Patient: Total time spent is greater than 50% in coordination of care (as documented) at patient's floor/unit and/or counseling patient:
[2022-02-22] MEDS: ASPIRIN 81 MG ECTAB PO SCH (19:38)
[2022-02-22] MEDS ORDERED: ROSUVASTATIN CALCIUM 20 MG TAB PO SCH (21:00)
--- NOTE | 2022-02-22 22:00 | Electrocardiogram Report ---
Test Reason : Blood Pressure : / mmHG Vent. Rate : 073 BPM Atrial Rate : 073 BPM P-R Int : 148 ms QRS Dur : 104 ms QT Int : 372 ms P-R-T Axes : 050 046 087 degrees QTc Int : 409 ms Normal sinus rhythm Nonspecific ST and T wave abnormality Abnormal ECG No previous ECGs available Confirmed by Jorje Murillo ([id number]) on 02/22/2022 9:59:41 PM Referred By: REFERRED SELF Confirmed By:Jorje Murillo
--- NOTE | 2022-02-23 06:13 | Electrocardiogram Report ---
Test Reason : Blood Pressure : / mmHG Vent. Rate : 051 BPM Atrial Rate : 051 BPM P-R Int : 158 ms QRS Dur : 106 ms QT Int : 426 ms P-R-T Axes : 025 023 091 degrees QTc Int : 392 ms Sinus bradycardia Nonspecific ST and T wave abnormality Abnormal ECG When compared with ECG of 21-FEB-2022 14:32, No significant change was found Confirmed by Jorje Murillo ([id number]) on 02/23/2022 6:13:29 AM Referred By: REFERRED SELF Confirmed By:Jorje Murillo
[2022-02-23] MEDS: LEVOTHYROXINE SODIUM 125 MCG TABLET PO SCH (06:35)
[2022-02-23 07:17] LABS: BUN Creatinine Ratio 14.6 (10-20); Calcium 9.7 mg/dl (8.5-10.1); Creatinine Clr Calc Pharmacy 96.9 ml/min; Est GFR (African American) 86.1 ml/min; Est GFR (Non-African American) 74.3 ml/min; Potassium 4.3 mmol/L (3.5-5.1)
[2022-02-23] MEDS: lisinopril 10 MG TAB PO SCH (08:33)
[2022-02-23] MEDS: PANTOprazole 40 MG TAB PO SCH (08:34)
[2022-02-23] MEDS ORDERED: CLOPIDOGREL BISULFATE 75 MG TAB PO SCH (09:00)
--- NOTE | 2022-02-23 10:00 | Cardiology Progress Note ---
Date of Service February 23, 2022 Assessment & Plan (1) Angina pectoris, unstable: (2) Hyperlipidemia: (3) Abnormal cardiovascular stress test: (4) Hypertension: (5) Stented coronary artery: Plan: The patient can be discharged today. I will arrange follow-up with our clinic. Admission and Anticipated Discharge Date Admission Date: February 21, 2022 Subjective The patient had an uneventful night. Review of Systems Review of Systems: Review of Systems: See HPI for pertinent positives. All other 10 point review of systems are negative. Physical Exam Physical Exam: General: no acute distress and stated age Head: normocephalic, no masses, lesions, tenderness or abnormalities Eyes: conjunctiva are pink and non-injected, sclera clear Neck: supple, no adenopathy, no bruits, normal jugular venous pulse, no hepatojugular reflux Chest: normal shape and normal respiratory effort Lungs: clear to auscultation and percussion Cardiac Exam: - regular rate & rhythm, no murmurs gallops or rubs - normal S1, normal S2 Pulses: 2(+) throughout Abdomen: abdomen soft, non-tender, no abnormal masses and no hepatosplenomegaly Musculoskeletal: no gait disturbance, no joint inflammation, no deforming arthritis Extremities: no edema and no cyanosis Neuro: grossly normal exam Results & Data ([facility]) Vital Signs (Past 12 Hours) Vital Signs Temp Pulse Pulse Resp BP Pulse Ox 02/23/22 07:22 51 L 02/23/22 07:15 36.5 C 56 L 19 147/94 H 98 02/23/22 04:27 36.4 C L 54 L 16 125/78 97 02/22/22 23:36 36.6 C 54 L 16 134/82 98 Laboratory Results Laboratory Results - last 24 hr 02/22/22 02/22/22 02/22/22 02:03 13:50 14:08 Activ Coag Time Kaolin 190 H 254 H Sodium Potassium Chloride Carbon Dioxide Anion Gap BUN Creatinine Est Cr Clr Drug Dosing Est GFR ( Amer) Est GFR (Non-Af Amer) BUN/Creatinine Ratio Glucose Calcium Hepatitis C Ab (EIA) NON-REACTIVE Hep C Ab Signal/Cutoff 0.01 02/23/22 06:14 Activ Coag Time Kaolin Sodium 136 Potassium 4.3 Chloride 105 Carbon Dioxide 22 Anion Gap 9 BUN 15 Creatinine 1.03 Est Cr Clr Drug Dosing 96.9 Est GFR ( Amer) 86.1 Est GFR (Non-Af Amer) 74.3 BUN/Creatinine Ratio 14.6 Glucose 100 H Calcium 9.7 Hepatitis C Ab (EIA) Hep C Ab Signal/Cutoff Medications Administered Current Inpatient Medications Acetaminophen (Acetaminophen 325 Mg Tab) 650 mg PO Q4H PRN PRN Reason: Pain or Fever Stop: 03/23/22 20:25 Last Admin: 02/22/22 15:57 Dose: 650 mg Documented by: Al Hydrox/Mg Hydrox/Simethicone (Aluminum/Magnesium Susp 30 Ml Udc) 15 ml PO Q4H PRN PRN Reason: Dyspepsia Stop: 03/23/22 20:25 Aspirin (Aspirin 81 Mg Ectab) 81 mg PO [facility] Stop: 03/23/22 20:59 Last Admin: 02/22/22 19:38 Dose: 81 mg Documented by: Clopidogrel Bisulfate (Clopidogrel Bisulfate 75 Mg Tab) 75 mg PO [facility] Stop: 03/25/22 08:59 Last Admin: 02/23/22 08:34 Dose: 75 mg Documented by: Heparin Sodium (Porcine) (Heparin Sod 5,000 Unit/0.5 Ml Vial) 5,000 units SQ Q8 [facility] Stop: 03/23/22 21:59 Last Admin: 02/22/22 06:02 Dose: 5,000 units Documented by: Levothyroxine Sodium (Levothyroxine Sodium 125 Mcg Tablet) 125 mcg PO DAILY@0630 [facility] Stop: 03/24/22 06:29 Last Admin: 02/23/22 06:35 Dose: 125 mcg Documented by: Lisinopril (Lisinopril 10 Mg Tab) [facility] [place] Stop: 03/24/22 08:59 Last Admin: 02/23/22 08:33 Dose: 10 mg Documented by: Magnesium Hydroxide (Magnesium Hydroxide Susp 30 Ml Udc) 30 ml PO Q12H PRN PRN Reason: Constipation Stop: 03/23/22 20:25 Nitroglycerin (Nitroglycerin Sl 0.4 Mg/Tab Tab) 0.4 mg SL PRN PRN PRN Reason: chest pain Stop: 03/23/22 20:25 Ondansetron HCl (Ondansetron Inj 2 Mg/Ml 2 Ml Vial) 4 mg IV Q6H PRN PRN Reason: Nausea Stop: 03/23/22 20:25 Pantoprazole Sodium (Pantoprazole 40 Mg Tab) 40 mg PO QAM [facility] Stop: 03/24/22 08:59 Last Admin: 02/23/22 08:34 Dose: 40 mg Documented by: Polyethylene Glycol (Polyethylene (Miralax) 17 Gm Pack) 17 gm PO DAILY PRN PRN Reason: Constipation Stop: 03/23/22 20:25 Rosuvastatin Calcium (Rosuvastatin Calcium 20 Mg Tab) 20 mg PO HS [facility] Stop: 03/24/22 08:59 Last Admin: 02/22/22 19:37 Dose: 20 mg Documented by: (1) Hypertension Hypertension type: unspecified Qualified Code(s): I10 - Essential (primary) hypertension
--- NOTE | 2022-02-23 10:26 | Discharge Summary ---
Date of Service February 23, 2022 Admission HPI Per Admitting Provider This is a 58-year-old male who has significant past medical history of HTN, HLD, obesity, history of provoked PE after shoulder surgery, hypothyroidism, BPH who presents to ED at the referral of cardiology secondary to chest pain x3 weeks. Patient was seen and evaluated in cardiology clinic today by Dr. Ford. He was referred secondary to persistent chest pain. Of significance patient did present to [facility] on 02/14 and was admitted for ischemic work- up. Initial ischemic work-up was unremarkable. He did undergo nuclear stress test images were read as no ischemia, a prior accountant machine processing EKG was positive for ischemic changes with [address] segment depressions in inferior and lateral leads. He was discharged to home and encouraged to follow-up with accountant machine processing as outpatient. In clinic today patient described chest discomfort has been ongoing for 3 weeks. It mostly occurs with exertion in the center of his chest with associated shortness of breath. This was noted when he was on the golf course and taking out the trash. When he would stop and rest this would aid in his discomfort. Baseline he is very active in bowling and golf. He states he tried tums and it seems to help. He describes it as a heavines/dullness. It happened yesterday when he was golfing and stopped with rest. CP is substernal, nonradiating, lasts 5 min or less, assoc with sob, rest and tums helps, exertion makes worse and has never had in past. He denies any recent illness or fever. He has had a cough fo several months due to post nasal drip and what he feels is seasonal allergies. He denies hx of COPD but hx of multiple PE after shoulder surgery. He was on blood thinner for a year and then it stopped. He denies any prior hx of CAD. HE does have strong FH of CAD, sister, mother and maternal grandmother in 70s had sudden . He denies smoking. Does have a couple beers with playing golf. He further denies any dizziness, lightheaded, syncope, palpitations, URI sx, n/v/d, abd pain, change in bowel or bladder habits. He has been on a baby asa x 1 week. He also started pantoprazole 5 days ago w/o improvement. Admission Exam Per Admitting Provider Constitutional: WD/WN, vitals as above, NAD, sitting up in bed, pleasant, conversing easily Head: Normocephalic, Atraumatic Eyes: PERRL, conjunctivae normal, anicteric sclerae ENMT: external ear and nose normal, oropharynx normal Neck: trachea midline, no thyromegaly normal visual inspection Respiratory: normal respiratory effort, lungs clear to auscultation, no wheeze, rales, rhonchi. Normal insp/exp effort, no accessory muscle use Cardiovascular: RRR, no murmur, no edema Vessels: no JVD or carotid bruit Chest: normal inspection of chest Abdomen: obesity, normal bowel sounds, soft, nontender, no hepatosplenomegaly Musculoskeletal: no cyanosis or clubbing, extremities motor strength 5/5 Skin: no rashes, warm and dry normal turgor Neurologic: PERRL, EOMI, accommodation nl, no face palsy, no dysarthria CN's II-XI intact bilaterally and moves all extremities Psychiatric: A+Ox3, euthymic affect Lymphatic: no cervical or axillary lymphadenopathy : deferred Principal Diagnosis Unstable angina, CAD Discharge Exam General: Sitting comfortably in bed, not in distress, on room air HEENT: EOMI, SHERMAN, MMM Chest: Clear breath sounds bilaterally, no wheezes or crackles CVS: Regular rate and rhythm, normal heart sounds, no murmur Abdomen: Soft, non tender, not distended, normal bowel sounds Neuro: Awake, alert, oriented, conversing well, non focal Extremities: No cyanosis, clubbing or edema Ambulated independently without issues. Discharge Data Allergies Allergy/AdvReac Type Severity Reaction Status Date / Time No Known Allergies Allergy Verified 02/21/22 16:04 Consultations 02/21/22 15:53 ED Decision to Admit Stat 02/21/22 16:06 Consult Cardiology Routine 02/22/22 14:46 Consult Cardiac Rehabilitation Routine Procedures Performed Operation Date: 02/22/22 12:30 Actual Procedures s Cineradiography w/Routine Exam - Merrill Barrera, DO p Cath, Left with Cors and Vent - Merrill Barrera, DO s IVUS Coronary Single Vessel - Alonzo Nayak MD s Fraction Flow Purcell SGL Ves - Alonzo Nayak MD s Fraction Flow Purcell Addl Ves - Alonzo Nayak MD s Drug Eluting Stent SGl Vessel - Alonzo Nayak MD Ordered Studies 02/22/22 12:10 CL Cath Imgs for PACS use only Stat 02/23/22 07:35 CL IVUS Coronary Single Vessel Routine Laboratory Results WBC 5.58 K/uL (4.8-10.8) 02/22/22 02:03 RBC 4.37 M/uL (4.7-6.1) L 02/22/22 02:03 Hgb 13.0 g/dL (14.0-18.0) L 02/22/22 02:03 Hct 39.9 % (42-52) L 02/22/22 02:03 MCV 91.3 fL (80-100) 02/22/22 02:03 MCH 29.7 pg (25-34) 02/22/22 02:03 MCHC 32.6 g/dL (32-36) 02/22/22 02:03 RDW Std Deviation 44.8 fL (36.4-46.3) 02/22/22 02:03 RDW Coeff of Erika 13.4 % (11.5-14.5) 02/22/22 02:03 Plt Count 228 K/uL (130-400) 02/22/22 02:03 MPV 9.5 fL (7.4-10.4) 02/22/22 02:03 Immature Gran % (Auto) 0.0 % 02/22/22 02:03 Neut % (Auto) 45.0 % 02/22/22 02:03 Lymph % (Auto) 44.8 % 02/22/22 02:03 Crenshaw % (Auto) 7.5 % 02/22/22 02:03 Eos % (Auto) 2.2 % 02/22/22 02:03 Baso % (Auto) 0.5 % 02/22/22 02:03 Neut # (Auto) 2.51 K/uL (1.4-6.5) 02/22/22 02:03 Lymph # (Auto) 2.50 K/uL (1.2-3.4) 02/22/22 02:03 Crenshaw # (Auto) 0.42 K/uL (0.11-0.59) 02/22/22 02:03 Eos # (Auto) 0.12 K/uL (0-0.5) 02/22/22 02:03 Baso # (Auto) 0.03 K/uL (0-0.2) 02/22/22 02:03 Immature Gran # (Auto) 0.00 K/uL (0.00-0.02) 02/22/22 02:03 PT 10.8 Seconds (9.0-12.0) 02/21/22 14:37 INR 1.0 (0.9-1.1) 02/21/22 14:37 Activ Coag Time Kaolin 254 SECONDS (94-140) H 02/22/22 14:08 Sodium 136 mmol/L (136-145) 02/23/22 06:14 Potassium 4.3 mmol/L (3.5-5.1) 02/23/22 06:14 Chloride 105 mmol/L (98-107) 02/23/22 06:14 Carbon Dioxide 22 mmol/L (21-32) 02/23/22 06:14 Anion Gap 9 (3-11) 02/23/22 06:14 BUN 15 mg/dl (6-23) 02/23/22 06:14 Creatinine 1.03 mg/dl (0.6-1.4) 02/23/22 06:14 Est Cr Clr Drug Dosing 96.9 ml/min 02/23/22 06:14 Est GFR ( Amer) 86.1 ml/min 02/23/22 06:14 Est GFR (Non-Af Amer) 74.3 ml/min 02/23/22 06:14 BUN/Creatinine Ratio 14.6 (10-20) 02/23/22 06:14 Glucose 100 mg/dl (70-99(Fasting)) H 02/23/22 06:14 Estimat Average Glucose 114 mg/dl 02/22/22 02:03 Hemoglobin A1c 5.6 % (4.5-5.6) 02/22/22 02:03 Calcium 9.7 mg/dl (8.5-10.1) 02/23/22 06:14 Magnesium 2.1 mg/dl (1.7-2.4) 02/22/22 02:03 Total Bilirubin 0.4 mg/dl (0.2-1.0) 02/22/22 02:03 AST 16 U/L (13-39) 02/22/22 02:03 ALT 20 U/L (7-52) 02/22/22 02:03 Alkaline Phosphatase 65 U/L (34-104) 02/22/22 02:03 Troponin I High Sens 8.6 pg/ml (0-20) 02/22/22 02:03 Total Protein 6.5 gm/dl (6.0-8.3) 02/22/22 02:03 Albumin 3.9 gm/dl (3.4-5.0) 02/22/22 02:03 Globulin 2.6 gm/dl (2.5-4.0) 02/22/22 02:03 Albumin/Globulin Ratio 1.5 (0.9-2) 02/22/22 02:03 Triglycerides 214 mg/dl (0-150) H 02/22/22 02:03 Cholesterol 167 mg/dl (0-200) 02/22/22 02:03 LDL Cholesterol, Calc 80 mg/dl 02/22/22 02:03 VLDL Cholesterol, Calc 43 mg/dl (0-30) H 02/22/22 02:03 HDL Cholesterol 44 mg/dl 02/22/22 02:03 Cholesterol/HDL Ratio 3.8 (0-5) 02/22/22 02:03 Lipase 29 U/L (11-82) 02/21/22 14:37 TSH 2.518 uIu/ml (0.300-4.500) 02/21/22 14:37 Hepatitis C Ab (EIA) NON-REACTIVE (NON-REACTIVE) 02/22/22 02:03 Hep C Ab Signal/Cutoff 0.01 (<1.00) 02/22/22 02:03 SARS-CoV-2, RNA, NAAT NEGATIVE (NEGATIVE) 02/21/22 15:26 Impressions Chest X-Ray 02/21/22 14:41 XR chest 1V portable HISTORY: Atypical chest pain and tightness. COMPARISON: None. FINDINGS: There are low lung volumes. Small linear density within the right midlung zone favors scarring or subsegmental atelectasis. Otherwise, no focal lung consolidations to suggest pneumonia. No evidence for pulmonary edema. No pleural effusions. No pneumothorax. The cardiac silhouette is normal in size. No rib fractures identified. IMPRESSION: No acute process. ACT 112: Negative or not required by law. Electronically signed by: Trevor Thomas M.D. 02/21/2022 3:00 PM Hospital Course (1) Chest pain: (2) Abnormal cardiovascular stress test: (3) Hypertension: (4) Hyperlipidemia: (5) Hypothyroidism: (6) Obesity: This is a 58-year-old male who has significant past medical history of HTN, HLD, obesity, history of provoked PE after shoulder surgery, hypothyroidism, BPH who presents to ED at the referral of cardiology secondary to chest pain x3 weeks. Unstable angina/CAD- - Had abnormal stress test a week ago and came with chest pain - S/p cardiac cath 02/[address]ayak- found to have Severe proximal LAD (80% by IVUS, MLA 3.5 mm2) and non-obstructive proximal ramus disease (FFR 0.9) - Underwent successful PCI of proximal LAD with single MACKENZIE (3.0 x 23 Xience; post-dilated with 3.5 NC) 02/22. - Uneventful stay. Chest pain free. Ambulating independently. Cleared by cardio for discharge. Discharge instructions reviewed by cardio. - Continue DAPT for at least 6 months, high intensity statin (Aspirin, plavix, crestor) - F/u with cardio as OP Essential hypertension- continue lisinopril Hyperlipidemia- continue statin Hypothyroidism- continue synthroid Total Time Total Time Spent Total Time Spent (In Minutes): 31 Discharge Plan Discharge Items Patient Disposition: Home - Self-Care Reason For Visit: CHEST PAIN, UNSTABLE ANGINA Discharge Diagnosis: Unstable angina Activity: Per Instructions section Non-emergency contact: Primary Care Provider Call non-emergency contact if: you have any medication questions and your symptoms worsen Follow-up/Referrals: Pablo Cottrell MD [Primary Care Provider] - Diet: Heart Healthy Cecile Attending Provider Instructions: Continue uninterrupted aspirin and plavix for at least 6 months because of the stent. Continue crestor. Follow up with the heart doctors Cecile Lab Tester Provider Instructions: ACTIVITY RECOMMENDATIONS: Excess manipulation of the wrist should be avoided for the next 24-48 hours. * No lifting over 2 pounds (approximately a 1/2 gallon of milk) with the utilized arm for 24 hours. * No strenuous activity such as bowling or tennis for 3 days. * Keep the site of the procedure covered with a bandage for 24 hours. *You may shower the day after the procedure. Do not take a tub bath or submerge the puncture site in water for the next 3 days. *Do not operate any motorized equipment for 3 days. SPECIAL CARE INSTRUCTIONS: The site may be slightly bruised and sore following your procedure. Should any of the following occur, contact the Dr. who performed your procedure. 1. Redness/inflammation, swelling, chills, or fever, or colored drainage at procedure site within 3-7 days after your procedure. 2. Coldness, discoloration, ongoing numbness, severe pain, or swelling. Expect mild tingling of hand and tenderness at the puncture site for up to three days. If this persists beyond three days, or other symptoms develop, notify the Dr. who performed your procedure. BLEEDING: If the procedure site on your wrist begins to bleed, do not panic 1. Place 1 or 2 fingers firmly just slightly above the insertion site to stop the bleeding. You may be able to feel your pulse as you hold pressure. 2. Lift your finger after 5 minutes to see if the bleeding has stopped. 3. Once the bleeding has stopped, gently wipe the wrist area clean with a bandage. * If the bleeding from your wrist does not stop after 10 minutes, or if there is a large amount of bleeding or spurting, call 911 (do not drive yourself to the hospital). SKIN IRRITATION: * You may experience some redness and/or swelling in the area where radiation was administered. If any skin irritation occurs, please contact your family physician. FOLLOW UP VISIT: Keep any scheduled doctor appointments. Pending Studies at Discharge: No Stand-Alone Forms: My [facility], Smoking Cessation Medications and DC Order Prescriptions: New clopidogrel 75 mg Tablet 75 mg PO QAM Qty: 30 RF: 0 Continued levothyroxine 125 mcg Tablet 125 mcg PO QAM RF: 0 lisinopril 10 mg Tablet 10 mg PO QAM RF: 0 aspirin 81 mg tablet,delayed release (DR/EC) 81 mg PO HS RF: 0 pantoprazole 40 mg tablet,delayed release (DR/EC) 40 mg PO QAM RF: 0 Excedrin Extra Strength 250-250-65 mg Tablet 1 tab PO Q6H PRN (Reason: Pain) RF: 0 rosuvastatin 20 mg tablet 20 mg PO DAILY RF: 0 Discharge Orders: Discharge Order (Routine); Ordered 02/23/22 Ordered By: Sen Gonzáles Admission Data Admit Date/Time: 02/21/22 16:28 Attending Provider: Sen Gonzáles Admit Provider: Anatoliy Chan Primary Care Provider: Pablo Cottrell Other Providers: Merrill Barrera ; Anatoliy Chan
--- NOTE | 2022-02-23 13:45 | Electrocardiogram Report ---
Test Reason : Blood Pressure : / mmHG Vent. Rate : 054 BPM Atrial Rate : 054 BPM P-R Int : 156 ms QRS Dur : 108 ms QT Int : 406 ms P-R-T Axes : 023 013 090 degrees QTc Int : 385 ms Sinus bradycardia Abnormal ECG When compared with ECG of 22-FEB-2022 06:00, No significant change was found Confirmed by Severo Wright ([id number]) on 02/23/2022 1:45:38 PM Referred By: REFERRED SELF Confirmed By:Severo Wright
== END 2022-02-23 13:54 | disposition home or self-care (01) | DRG 247 ==
LOC: ED 14:17 → SUATTDRO 16:28 → 2S 16:28

== ENCOUNTER 2023-09-18 05:29 | Observation (INO) ==
--- NOTE | 2023-09-02 10:19 | PAT Medication Instructions ---
Medication Instructions Date of Service September 02, 2023 Home Medications Medication Instructions Recorded clopidogrel 75 mg tablet 75 mg PO QAM #30 tabs 02/23/22 levothyroxine 125 mcg tablet 125 mcg PO QAM lisinopril 10 mg tablet 10 mg PO QAM aspirin 81 mg tablet,delayed release 81 mg PO HS [id number] 250 mg-250 mg-65 mg tablet (Excedrin Extra Strength) 1 tab PO Q6H PRN rosuvastatin 20 mg tablet 20 mg PO PM clopidogrel 75 mg tablet 75 mg PO QAM gabapentin 100 mg capsule 200 mg PO BID ASK your surgeon for instructions [id number] 250 mg-250 mg-65 mg tablet (Excedrin Extra Strength) 1 tab PO Q6H PRN ASK your prescriber and surgeon aspirin 81 mg tablet,delayed release 81 mg PO HS clopidogrel 75 mg tablet 75 mg PO QAM DO NOT take the morning of surgery lisinopril 10 mg tablet 10 mg PO QAM Take morning of surgery With a small sip of water, OTHERWISE NOTHING TO EAT OR DRINK AFTER MIDNIGHT: levothyroxine 125 mcg tablet 125 mcg PO QAM gabapentin 100 mg capsule 200 mg PO BID Take evening before surgery rosuvastatin 20 mg tablet 20 mg PO PM gabapentin 100 mg capsule 200 mg PO BID Other Notes If you have any questions please call us at [phone] or [phone] or [phone] or [phone]
--- NOTE | 2023-09-06 10:28 | Anesthesiology Consultation ---
Date of Service September 06, 2023 Assessment & Plan (1) Encounter for pre-operative examination: Plan - awaiting PCP response to hyperkalemia. - medical clearance 09/05/23: "...preop clearance for total right shoulder replacement...cleared by [facility] cardiology last week...fit for procedure..." - cardiology clearance 09/04/23 [facility]: "...Stress testing negative for ischemia. Echo with normal systolic heart function and only mild valve issues, grade I diastolic dysfunction. Okay to proceed with procedure. Recommend uninterrupted continuation of aspirin. Okay to hold clopidogrel 7 days prior to procedure. Recommend holding lisinopril the AM of procedure, resuming postoperatively as hemodynamics permit..." - cardiology clearance 08/27/23 [facility]: "...preoperative cardiology consultation prior to elective right total shoulder replacement...stable exertional dyspnea...ASCVD Presentation with unstable angina in January 2022. Cardiac catheterization revealed a 70% proximal calcified LAD stenosis and a 50 to 60% proximal ramus stenosis that was nonobstructive by FFR, 0.90. Status post successful PCI of the proximal LAD with a single 3.0 x 23 mm Xience drug eluting stent...to proceed with risk stratification Lexiscan nuclear stress testing...Recommend uninterrupted continuation of aspirin. Okay to hold clopidogrel 7 days prior to procedure. Recommend holding lisinopril the AM of procedure, resuming postoperatively as hemodynamics permit. Patient is not prescribed beta-jenny therapy due to chronic resting bradycardia..." - Outpatient joint assessment: Patient is currently scheduled for inpatient pathway. If re-evaluated and patient/surgeon requests outpatient pathway, patient is not recommended candidate for outpatient joint program from anesthesia standpoint. - Patient had recent dental work-was instructed to contact surgeon's office for further determination. Patient verbalized understanding and agreement, denied questions or concerns. Chart Review Chart Review: Pending: Refer to Additional Notes / Consult section and Patient seen in Pre Admission Testing Teaching & Discussion Pre-Anesthesia Teaching/Discussion Notes: Instructed NPO after midnight before surgery, except medications with 15 cc of water. Medication instructions provided according to the PAT guidelines. History Surgery Operation Date: 09/18/23 07:15 Proposed Procedures p Right Total Shoulder Arthroplasty Reverse, Biceps Tenodesis - Pablo Cottrell MD Height/Weight Height: 6 ft 2 in Weight: 127.7 kg Allergies Allergy/AdvReac Type Severity Reaction Status Date / Time No Known Allergies Allergy Verified 09/02/23 08:25 Medications Home Medications Medication Instructions Recorded Confirmed Last Taken levothyroxine 125 mcg tablet 125 mcg PO QAM 07/07/21 09/02/23 02/21/22 lisinopril 10 mg tablet 10 mg PO QAM 07/07/21 09/02/23 02/21/22 aspirin 81 mg tablet,delayed 81 mg PO HS 02/21/22 09/02/23 02/20/22 release zftaqaz-puywxmwsnhupj-pckhvhzz 250 1 tab PO Q6H PRN Pain 02/21/22 09/02/23 02/21/22 03:00 mg-250 mg-65 mg tablet (Excedrin 1 tablet Extra Strength) rosuvastatin 20 mg tablet 20 mg PO PM 02/21/22 09/02/23 Unknown clopidogrel 75 mg tablet 75 mg PO QAM #30 tabs 02/23/22 09/02/23 Unknown gabapentin 100 mg capsule 200 mg PO BID 09/02/23 09/02/23 Unknown meloxicam 15 mg tablet 15 mg PO DAILY PRN Pain 09/06/23 09/06/23 Unknown Additional Notes: Patient was instructed to contact surgeon's office regarding meloxicam for surgeon's instructions. He verbalized understanding and agreement, denied questions, concerns, or additional medications. Past Medical History Medical History Chronic back pain denies change or worsening History of COVID-19 Jun 30, 2023 > home test, tested 3 days later and was negative, sore throat, headache, all resolved Obesity Hypothyroidism Pulmonary embolism 2014 S/P SHOULDER SURGERY > no further issues Migraine HX Hyperlipidemia Hypertension controlled, stable per pt Patient denies h/o stroke, seizures, heart attack, heart failure, DM, or blood transfusions. Exercise / Class Metabolic Activity II 4-5 Yardwork/Stairs/Walk up hill (denies chest discomfort or shortness of breath with 1 FOS) Past Family History Family History Mother Family history of diabetes mellitus Past Surgical History Surgical History History of tooth extraction History of heart artery stent January 2022 > [facility] > x1 stent History of cardiac cath January 2022 > [facility] > x1 stent History of hand surgery right cyst removal History of hand surgery tendon repair > left ring finger History of repair of rotator cuff bilat History of colonoscopy X 4 History of arthroscopy R/L KNEES Past Anesthesia History No Hx of Anesthesia Complications and No Family Hx of Anesthesia Complications History of PONV No Hx of PONV and No Hx of Motion Sickness Social History Smoking Status: Never smoker Do You Dip or Chew Tobacco: No (hx of, quit 6 yrs ago) Hx Alcohol Use: Yes Alcohol type: beer alcohol intake frequency: a few times a month Hx Substance Use: No substance use type: does not use Review of Systems Snoring, denies witnessed apneas. Patient denies chest pain, shortness of breath, dyspnea on exertion, reflux, fever, chills, cough, wheezing, or palpitations. Physical Exam Vital Signs Vitals BP 129/85 P 56 TEMP 97.9 SP02 97% on RA RESP 18 Physical Patient resting comfortably in chair in no acute distress, alert and oriented, responding appropriately throughout visit Full cervical extension range of motion without pain TMD 3.5 finger breadths Mallampati Score 3 Dentition: two crowns, denies chipped or loose teeth, caps, implants or bridges Lungs: normal respiratory effort. Good air movement, clear throughout to a uscultation, no adventitious breath sounds Cardiac: regular rate and rhythm, no murmurs noted Carotid arteries: negative bruit bilat Lab Results Anesthesia Preop Results Results Anesthesia Widget: WBC 5.09 K/ul (4.8-10.8) 09/06/23 Hgb 14.4 g/dl (14.0-18.0) 09/06/23 Hct 44.3 % (42.0-52.0) 09/06/23 Plt 278 K/uL (130-400) 09/06/23 Na 136 mmol/L (136-145) 09/06/23 K 5.4 mmol/L (3.5-5.1) H 09/06/23 Cl 103 mmol/L (98-107) 09/06/23 CO2 28 mmol/L (21-32) 09/06/23 BUN 22 mg/dl (6-23) 09/06/23 Creat 1.04 mg/dl (0.6-1.4) 09/06/23 Glucose Level 89 mg/dl (70-99(Fasting)) 09/06/23 PT 11.3 Seconds (9.0-12.0) 09/06/23 PTT 27 Seconds (21-31) 09/06/23 INR 1.0 (0.9-1.1) 09/06/23 Urine Color Yellow 09/06/23 Urine Appearance Clear (Clear) 09/06/23 Urine pH 5.5 (4.5-7.5) 09/06/23 Urine Specific [place] 1.012 (1.000-1.030) 09/06/23 Urine Protein Negative (Negative) 09/06/23 Urine Glucose (UA) Negative (Negative) 09/06/23 Urine Ketones Negative (Negative) 09/06/23 Urine Blood Trace (Negative) H 09/06/23 Urine Nitrite Negative (Negative) 09/06/23 Urine Bilirubin Negative (Negative) 09/06/23 Urine Urobilinogen Negative (Negative) 09/06/23 Urine Leukocyte Esterase Negative (Negative) 09/06/23 Urine WBC (Auto) 0 /hpf (0-5) 09/06/23 Urine RBC (Auto) 0-4 /hpf (0-4) 09/06/23 Urine Hyaline Casts (Auto) 0 /lpf (0-5) 09/06/23 Urine Epithelial Cells (Auto) 0-5 /lpf (0-5) 09/06/23 Urine Bacteria (Auto) Negative (Negative) 09/06/23 Blood Type AB Positive 09/06/23 Antibody Screen NEGATIVE 09/06/23 Testing Electrocardiogram Date: 08/27/23 Sinus bradycardia, rate 56 bpm Chest X-Ray Date: 09/06/23 No acute cardiopulmonary findings. No change in appearance of the chest. Echocardiogram Date: 09/03/23 EF 60-64% Normal LV wall motion Mild cLVH Grade I diastolic dysfunction Mild aortic valve regurgitation Mild aortic valve sclerosis Stress Test Date: 08/30/23 Pharmacologic MPHR 70% Negative for inducible ischemia EF > 70% Cardiac Catheterization Date: 02/22/22 1. Multivessel coronary artery disease -70% calcified, proximal LAD (positive by Pd/Pa, 80% by IVUS). 50 to 60% proximal ramus (nonobstructive by FFR 0.90). 2. Successful PCI of proximal LAD with single drug-eluting stent (3.0 x 23 mm Xience; postdilated with 3.5 NC
--- NOTE | 2023-09-07 09:07 | History & Physical Report ---
Date of Service September 07, 2023 Assessment & Plan (1) Rotator cuff arthropathy of right shoulder: Plan: Treatment options discussed with the patient and they wish to proceed with surgical management. Risks, benefits and alternatives to surgery including but not limited to infection, DVT, pain, stiffness, need for revision surgery, damage to blood vessels, damage to nerves, PE, , were discussed with the patient and they wish to proceed. Plan for right reverse total shoulder arthroplasty scheduled for September 18 at [facility] with Dr. Cottrell. All questions were answered. Patient will follow-up postoperatively. History of Present Illness Chief Complaint: Right shoulder pain Primary Care Provider: Cayden Zayas 68-year-old male with past medical history significant for hypertension, high cholesterol, CAD with stents, hypothyroidism, history of PE who presents with ongoing right shoulder pain. He does have past history of rotator cuff repair with failure of repair. Pain is interfering with his daily activities. He has failed conservative measures and would like to proceed with surgical management. Who presents with patient denies headaches, sweats, fevers, chills, double vision, blurred vision, cough, sore throat, dysphagia, chest pain, sob, wheezing, n/v/d/c, numbness, tingling, fatigue, urinary symptoms, mood disorders. ROS positive for right shoulder pain and stiffness. Allergies Allergy/AdvReac Type Severity Reaction Status Date / Time No Known Allergies Allergy Verified 09/02/23 08:25 Home Medications Medication Instructions Recorded Confirmed Type levothyroxine 125 mcg tablet 125 mcg PO QAM 07/07/21 09/02/23 History lisinopril 10 mg tablet 10 mg PO QAM 07/07/21 09/02/23 History aspirin 81 mg tablet,delayed 81 mg PO HS 02/21/22 09/02/23 History release ovdxvdl-vqbsrwcgzhrrm-uxhjynqk 250 1 tab PO Q6H PRN Pain 02/21/22 09/02/23 History mg-250 mg-65 mg tablet (Excedrin Extra Strength) rosuvastatin 20 mg tablet 20 mg PO PM 02/21/22 09/02/23 History clopidogrel 75 mg tablet 75 mg PO QAM #30 tabs 02/23/22 09/02/23 Rx gabapentin 100 mg capsule 200 mg PO BID 09/02/23 09/02/23 History meloxicam 15 mg tablet 15 mg PO DAILY PRN Pain 09/06/23 09/06/23 History Past Med/Surg History Medical History Chronic back pain denies change or worsening History of COVID-19 Jun 30, 2023 > home test, tested 3 days later and was negative, sore throat, headache, all resolved Obesity Hypothyroidism Pulmonary embolism 2014 S/P SHOULDER SURGERY > no further issues Migraine HX Hyperlipidemia Hypertension controlled, stable per pt Surgical History History of tooth extraction History of heart artery stent January 2022 > [facility] > x1 stent History of cardiac cath January 2022 > [facility] > x1 stent History of hand surgery right cyst removal History of hand surgery tendon repair > left ring finger History of repair of rotator cuff bilat History of colonoscopy X 4 History of arthroscopy R/L KNEES Family History Mother Family history of diabetes mellitus Social History Smoking Status: Never smoker Second Hand Exposure: No; Do You Dip or Chew Tobacco: No (hx of, quit 6 yrs ago); Hx Alcohol Use: Yes Alcohol type: beer Hx Substance Use: No Preferred Language: Yakut Communication Ability: Effective Rod Cup Filler Required: No Beliefs That Will Affect Care: None Current Living Situation: Spouse 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 Positive impingement signs. Painful range of motion. Forward flexion to 180 degrees, abduction to 90 degrees actively. Pain and weakness with strength testing. 4 -/5 abduction, 4+/5 internal rotation, 3+/5 external rotation. Skin: no rashes, warm and dry Neurologic: patellar DTR's 2+ bilat, sensation intact Psychiatric: A+Ox3, euthymic affect Results & Data Diagnostic Findings Right shoulder radiographs demonstrate proximal migration of the humerus with decreased acromiohumeral interval. Postoperative changes over the greater tuberosity. Mild degenerative change at the AC joint. MRI demonstrates large full-thickness tear supraspinatus and infraspinatus. There is full-thickness tearing of the subscapularis as well with medial dislocation of the biceps tendon.
[2023-09-18] MEDS ORDERED: LR 60ML/HR IV SCH (06:00)
[2023-09-18] MEDS ORDERED: FAMOTIDINE 20 MG TAB PO SCH (06:00)
[2023-09-18] MEDS ORDERED: dexAMETHasone 4 MG TAB PO SCH (06:00)
[2023-09-18] MEDS ORDERED: CeleBREX 200 MG CAP PO SCH (06:00)
[2023-09-18] MEDS ORDERED: METOCLOPRAMIDE HCL 10 MG TABLET PO SCH (06:00)
[2023-09-18] MEDS ORDERED: GABAPENTIN 300 MG CAP PO SCH (06:00)
[2023-09-18] MEDS ORDERED: ceFAZolin 2000MG 2,000 MG/15 ML SYR IV SCH (06:00)
[2023-09-18] MEDS ORDERED: TRANEXAMIC ACID 1,000 MG **IV Intra-op IV SCH (06:00)
[2023-09-18] MEDS ORDERED: TRANEXAMIC ACID 1,000 MG **IV Pre-op IV SCH (06:00)
[2023-09-18] MEDS ORDERED: LR 15ML/HR IV SCH (06:00)
[2023-09-18] MEDS ORDERED: ACETAMINOPHEN 500 MG TAB PO SCH (06:00)
[2023-09-18] MEDS ORDERED: BUPIVACAINE 0.5 % 5 MG/1 ML PF 10ML VIAL ONE (06:19)
[2023-09-18] MEDS ORDERED: MIDAZOLAM HCL 1 MG/ML 2ML VIAL ONE (06:44)
[2023-09-18] MEDS ORDERED: ROCURONIUM BROMIDE 10 MG/ML 5 ML VIAL IV ONE (06:44)
[2023-09-18] MEDS ORDERED: LIDOCAINE 2% 2 ML VIAL/AMP(20MG/ML) INFIL ONE (06:44)
[2023-09-18] MEDS ORDERED: PROPOFOL IV EMULSION 10 MG/ML 20 ML VIAL IV ONE ×2 (06:44→07:32)
[2023-09-18] MEDS ORDERED: fentaNYL citrate PF 100 MCG/2 ML VIAL ONE (06:44)
[2023-09-18] MEDS ORDERED: DEXAMETHASONE SOD INJ 4 MG/ML VIAL ONE ×2 (06:44→07:46)
[2023-09-18] MEDS ORDERED: ONDANSETRON INJ 2 MG/ML 2 ML VIAL ONE (06:44)
--- NOTE | 2023-09-18 07:02 | History & Physical Bridge Note ---
Date of Service September 18, 2023 History & Physical Bridge Note I have examined the patient, reviewed the History & Physical and in the interval since the performance of the History & Physical I have noted the following changes of clinical significance: no changes noted
[2023-09-18] MEDS ORDERED: ePHEDrine sulfate 50 MG/5 ML SYR ONE (07:42)
--- NOTE | 2023-09-18 08:25 | Anesthesiology Consultation ---
Date of Service September 18, 2023 Assessment & Plan Chart Review Chart Review: Acceptable Risk for Surgery Consults Requested none History Surgery Operation Date: 09/18/23 07:15 Proposed Procedures p Right Total Shoulder Arthroplasty Reverse, Biceps Tenodesis - Pablo Cottrell MD Height/Weight Height: 6 ft 2 in Weight: 129 kg Allergies Allergy/AdvReac Type Severity Reaction Status Date / Time No Known Allergies Allergy Verified 09/18/23 06:18 Medications Home Medications Medication Instructions Recorded Confirmed Last Taken levothyroxine 125 mcg tablet 125 mcg PO QAM 07/07/21 09/18/23 09/18/23 05:50 lisinopril 10 mg tablet 10 mg PO QAM 07/07/21 09/18/23 09/17/23 08:00 aspirin 81 mg tablet,delayed 81 mg PO HS 02/21/22 09/18/23 09/17/23 18:00 release tlallkb-tmcogffndtciz-bqxggdfp 250 1 tab PO Q6H PRN Pain 02/21/22 09/18/23 02/21/22 03:00 mg-250 mg-65 mg tablet (Excedrin 1 tablet Extra Strength) rosuvastatin 20 mg tablet 20 mg PO PM 02/21/22 09/18/23 09/17/23 18:00 clopidogrel 75 mg tablet 75 mg PO QAM #30 tabs 02/23/22 09/18/23 09/10/23 gabapentin 100 mg capsule 200 mg PO BID 09/02/23 09/18/23 2 Weeks Ago ~09/04/23 meloxicam 15 mg tablet 15 mg PO DAILY PRN Pain 09/06/23 09/18/23 2 Weeks Ago ~09/04/23 acetaminophen 500 mg tablet 500 mg PO QID PRN Headache 09/18/23 09/18/2308/30 Active Medications Generic Name Dose Route Start Last Admin Trade Name Freq PRN Reason Stop Dose Admin Acetaminophen 1,000 mg 09/18/23 06:00 09/18/23 06:29 Acetaminophen 500 Mg Tab PO 09/18/23 18:00 1,000 mg PREOP SHARATH Administration Celecoxib 200 mg 09/18/23 06:00 09/18/23 06:30 Celebrex 200 Mg Cap PO 09/18/23 18:00 200 mg PREOP SHARATH Administration Dexamethasone 8 mg 09/18/23 06:00 09/18/23 06:30 Dexamethasone 4 Mg Tab PO 09/18/23 18:00 8 mg PREOP SHARATH Administration Famotidine 20 mg 09/18/23 06:00 09/18/23 06:30 Famotidine 20 Mg Tab PO 09/18/23 18:00 20 mg PREOP SHARATH Administration Gabapentin 300 mg 09/18/23 06:00 09/18/23 06:29 Gabapentin 300 Mg Cap PO 09/18/23 18:00 300 mg PREOP SHARATH Administration Lactated Ringer's 1,000 mls @ 15 mls/hr 09/18/23 06:00 09/18/23 07:14 Lr IV 09/19/23 05:59 Infused .Q24H SHARATH Infusion Lactated Ringer's 1,000 mls @ 60 mls/hr 09/18/23 06:00 09/18/23 06:27 Lr IV 09/18/23 22:39 Not Given .[id number] SHARATH Tranexamic Acid 1,000 mg in 100 mls @ 600 mls/hr 09/18/23 06:00 09/18/23 07:06 Tranexamic Acid / 0.7% Nacl IV 09/18/23 18:00 600 mls/hr TODAY@0600 SHARATH Administration Cefazolin Sodium 72.5 mls @ 130 mls/hr 09/18/23 06:00 09/18/23 07:25 Ancef 3000mg IV 09/18/23 18:00 130 mls/hr PREOP SHARATH Administration Protocol Metoclopramide HCl 10 mg 09/18/23 06:00 09/18/23 06:29 Metoclopramide Hcl 10 Mg Tablet PO 09/18/23 18:00 10 mg PREOP SHARATH Administration NPO Date Last Intake of Fluids: 09/17/23 Time Last Intake of Fluids: 23:00 Date Last Intake of Solids: 09/17/23 Time Last Intake of Solids: 20:00 Past Medical History Medical History Chronic back pain denies change or worsening History of COVID-Jun 30, 2023 > home test, tested 3 days later and was negative, sore throat, headache, all resolved Obesity Hypothyroidism Pulmonary embolism 2014 S/P SHOULDER SURGERY > no further issues Migraine HX Hyperlipidemia Hypertension controlled, stable per pt Past Family History Family History Mother Family history of diabetes mellitus Past Surgical History Surgical History History of tooth extraction History of heart artery stent January 2022 > [facility] > x1 stent History of cardiac cath January 2022 > [facility] > x1 stent History of hand surgery right cyst removal History of hand surgery tendon repair > left ring finger History of repair of rotator cuff bilat History of colonoscopy X 4 History of arthroscopy R/L KNEES Social History Smoking Status: Never smoker Do You Dip or Chew Tobacco: No (hx of, quit 6 yrs ago) Hx Alcohol Use: Yes Alcohol type: beer alcohol intake frequency: a few times a month Hx Substance Use: No substance use type: does not use Physical Exam Vital Signs Last Vital Signs Temp 36.8 C 09/18/23 06:15 Pulse 72 09/18/23 06:15 Resp 20 09/18/23 06:15 BP 168/89 H 09/18/23 06:15 Pulse Ox 98 09/18/23 06:15 O2 Del Method Room Air 09/18/23 06:15
[2023-09-18] MEDS ORDERED: ATROPINE SULFATE 0.1 MG/ML 10ML SYR IV PRN (08:26)
[2023-09-18] MEDS ORDERED: ONDANSETRON INJ 2 MG/ML 2 ML VIAL IV PRN ×2 (08:26→12:34)
[2023-09-18] MEDS ORDERED: PROMETHAZINE HCL 12.5 MG in SODIUM CHLORIDE 0.9% 50 ML IV PRN (08:26)
[2023-09-18] MEDS ORDERED: HYDROmorphone INJ 2 MG/ML SYR/VIAL IV PRN (08:26)
[2023-09-18] MEDS ORDERED: fentaNYL citrate PF 100 MCG/2 ML VIAL IV PRN (08:26)
[2023-09-18] MEDS ORDERED: ePHEDrine sulfate 50 MG/ML AMP IV PRN (08:26)
[2023-09-18] MEDS ORDERED: GLYCOPYRROLATE 0.2 MG/ML VIAL ONE (09:40)
[2023-09-18] MEDS ORDERED: NEOSTIGMINE METHYLSULFATE 1 MG/ML 10ML VIAL ONE (09:40)
--- NOTE | 2023-09-18 11:07 | Post Operative Brief Note ---
Immediate Post Op Note v1 Date of Surgery September 18, 2023 Pre & Post Diagnosis Operation Date: 09/18/23 07:15 Pre-Op Diagnosis: Right Shoulder glenohumeral osteoarthritis,Rotator cuff arthropathy failed rotator cuff repair, medial dislocation of the biceps tendon. Post-Op Diagnosis: Right Shoulder glenohumeral osteoarthritis, rotator cuff arthropathy, rotator cuff tendinopathy, failed rotator cuff repair, medial dislocation biceps tendon with biceps tendinopathy, retained hardware suture material and anchors post rotator cuff repair. I identified the patient and participated in the time-out.: Yes Procedure Operation Date: 09/18/23 07:15 Actual Procedures Right reversed Total Shoulder Arthroplasty, biceps tenodesis, rotator cuff repair infraspinatus tendon, Hardware removal (multiple suture anchors and suture material) - Pablo Cottrell MD Surgeon Pablo Cottrell MD Investment Strategist Alexis ESQUIVEL Estimated Blood Loss 200 Findings Consistent with Post-Op Diagnosis Specimens humeral head cut Drains Hemovac Drain Anesthesia Type General Regional Complications none Disposition Disposition: Recovery Room Overlapping Procedure I was immediately available: during the entire case.
--- NOTE | 2023-09-18 11:33 | Operative Report ---
Post Operative Report Pre & Post Diagnosis Operation Date: 09/18/23 07:15 Pre-Op Diagnosis: Right Shoulder glenohumeral osteoarthritis, rotator cuff arthropathy, failed rotator cuff repair,medial dislocation of the biceps tendon. Post-Op Diagnosis: Right Shoulder glenohumeral osteoarthritis, rotator cuff arthropathy, failed rotator cuff repair, rotator cuff tendinopathy, medial dislocation biceps tendon, biceps tendinopathy, retained hardware prior rotator cuff repair. I identified the patient and participated in the time-out.: Yes Procedure Operation Date: 09/18/23 07:15 Actual Procedures right shoulder reverse total shoulder arthroplasty, biceps tenodesis, repair infraspinatus tendon rotator cuff, debridement rotator cuff, removal deep hardware( multiple suture anchors and suture material) - Pablo Cottrell MD Surgeon Pablo Cottrell MD Hammer Heater Alexis ESQUIVEL Estimated Blood Loss 200 Findings Consistent with Post-Op Diagnosis Specimens humeral head cut Drains 2 Hemovac Anesthesia Type General Regional Complications none Disposition Disposition: Recovery Room Indications 68-year-old male with failed right rotator cuff repair with large retracted rotator cuff tear rotator cuff tendinopathy dislocated biceps tendon. patient has some early rotator cuff arthropathy glenohumeral osteoarthritis. Active forward range of motion in Holding area preoperatively was only 90 degrees. Description of Procedure The patient was taken to the operating room and anesthetized under regional block and general anesthetic. The patient was positioned on the operating table in a 30 beach chair position with a towel roll under the medial border of the Right scapula. The arm was draped free to be able to manipulate the shoulder as needed. The right upper extremity was prepped and draped in usual sterile fashion. Exam demonstrated good passive range of motion of the shoulder. An anterior deltopectoral approach was performed. A longitudinal incision was made in the deltopectoral interval. The skin was incised sharply. Subcutaneous flaps were elevated off the fascia. The cephalic vein was dissected out and retracted lateral with the deltoid. The clavipectoral fascia was divided at the lateral margin of the conjoined tendon and extended up to the CA ligament. The following findings were noted: there is a large subacromial bursal fluid collection with 2 areas of rotator cuff tearing. The infraspinatus tendon was torn posteriorly and retracted medially and had delamination and degenerative tearing of the undersurface of the infraspinatus and the supraspinatus tendon had some tearing of the posterior aspect where there were previous suture anchors. The anterior aspect adjacent to the rotator interval was still intact to the greater tuberosity. Biceps tendon was dislocated under the upper subscapularis and there was subscapularis partial tearing and some tendinopathy of the subscapularis. There were loose bodies in the biceps tendon sheath and thickened chronic tenosynovitis around the biceps tendon.. The upper centimeter of the pectoralis was released for inferior exposure. A self-retaining retractor was placed. The biceps tendon sheath was opened up and loose bodies were resected and the thickened biceps tendon sheath was resected. the biceps tendon was tenodesed to the pectoralis tendon with #2 FiberWire. Combination of whipstitches and teqmzo-jv-gjast sutures were used to tenodesed the biceps to the pectoralis tendon. The proximal biceps was resected. The subscapularis muscle fibers were split longitudinally at the level of the circumflex vessels. The circumflex vessels were identified and tied off with silk ties and divided laterally. A Kitner elevator was used to free up the inferior fibers of the subscapularis off of the capsule. The axillary nerve was identified with a tug test and protected with a blunt Edyta retractor between the nerve and the capsule. The subscapularis tendon was then taken down off of the lesser tuberosity subperiosteally, a Vicryl traction suture was placed and a subperiosteal dissection was performed along the neck of the humerus as the arm was gradually externally rotated exposing the humeral head. The humeral head findings demonstrated Central area of grade IV chondromalacia of the humeral head but the surrounding articular cartilage was still intact and there were no osteophytes inferiorly. A Gomez elevator was used to assist in releasing the capsule of the neck of the humerus. The capsule was divided with Meehan scissors down to the glenoid released off the anterior glenoid and the rotator interval was released to meet the capsular release and a 360 release of the subscapularis was accomplished. A Fukuda retractor was placed into the joint retracting the humeral head posterior. Glenoid findings demonstrated Some grade 2 arthritic changes but intact articular cartilage with degenerative glenoid labrum and intra-articular biceps was widened consistent with chronic tendinopathy. The labrum and biceps tendon was resected. an anterior-inferior and posterior inferior capsular release were performed with electrocautery and a Gomez elevator on bone with the axillary nerve protected inferiorly by the retractor. Attention was then taken to the humeral preparation. The anterior portion of the intact supraspinatus and rotator interval area was released and the supraspinatus tendon tissue was resected. A traction suture was placed into the infraspinatus for later repair and the u ndersurface delaminated tear which had significant tendinopathy was just debrided from the infraspinatus. The greater tuberosity area was debrided and the area of the tear of the infraspinatus for repair later in the case. The suture anchors that were visible and suture material at the greater tuberosity insertion site were debrided and excised. The cutting guide was placed into the humeral head. It was positioned at 20 of retroversion. Oscillating saw was used to resect the humeral head giving the cut above the level of the posterior rotator cuff insertion site. The humerus was then prepared for the stem. I used the ascend flex stem from [employer]. The sizing broaches were used followed by trial broaches up to a size 7B standard which had the appropriate fit and fill. in order to fully seat the broaches multiple anchors were removed from the greater tuberosity area and all old suture material was removed as well. The appropriate sized cut protector was placed. The humerus was then retracted posterior to the glenoid. The glenoid was sized for a 29 mm baseplate The guide for the baseplate was positioned in a 10 inferior tilt and the central drill hole was made. The reamer for the 29 mm baseplate was used. The central drill was widened for the peg. The aequalis hydroxyapatite-coated 29 mm baseplate with standard post baseplate was impacted into position. The ba se plate was transfixed with superior and inferior locking screws and anterior and posterior compression screws with stable fixation. The fan reamer was used for the 42 millimeter glenoid sphere. After irrigation the 42 mm glenoid sphere was impacted onto the baseplate and the security screw was tightened. Attention was taken back to the humerus. The cut protector was removed and the +0 high offset humeral tray trial was assembled to the trial stem rotated appropriately to get bony coverage and then screwed in position. A trial reduction was performed. A 9 mm x 42 mm reversed trial insert demonstrated good stability and no shuck. The trials were removed. 3 drill holes are made into the harder bone in the bicipital groove area and 3 #5 FiberWire sutures were placed transosseously. The canal was irrigated with pulsatile lavage with saline solution. The final component was assembled. The final component was [employer] ascend flex size 7B standard humeral stem assembled to the +0 high offset humeral tray and a 42, +9 mm reversed polyethylene insert. This was then impacted into the humerus with a tight press-fit. It was reduced to the glenoid sphere. Stability was verified. The infraspinatus was then repaired adjacent to the teres minor with sutures transosseous the through greater tuberosity posteriorly.The Subscapularis was repaired with the #5 FiberWire sutures using John-Kvng suture technique. Lateral row soft tissue repair was performed with #2 FiberWire thmssy-ye-oebqe sutures. soft tissue repair and transosseous sutures were used. The pectoralis was repaired with #2 FiberWire zoptiu-lu-hueev sutures reinforcing the biceps tendon tenodesis. The arm was taken through a range of motion which demonstrated 140 degrees of forward flexion, 90 degrees of abduction and 70 degrees of internal and external rotation without any tension on the repair. The implant was stable through the range of motion tested. The wound was copiously irrigated. 2 Hemovac drains were placed. The deltopectoral interval was closed with xpvwew-ml-ybluq #1 Vicryl sutures. The subcutaneous tissues were closed with 2-0 Vicryl sutures. The skin was closed with cande. Sterile dressings were applied and a shoulder immobilizer Alexis ESQUIVEL, My physician nursing assistant acted as machinist first class throughout the procedure .He performed functions including patient positioning, arm positioning, prepping and draping, soft tissue retraction, instrument management, suture management and performed the subcutaneous and skin closure and will participate in the postoperative care of the patient. I attest to the content of the Intraoperative Record and any orders documented therein. Any exceptions are noted below.
--- NOTE | 2023-09-18 11:36 | XRay Report ---
XR shoulder RT min 2V routine CLINICAL HISTORY: Post shoulder surgery. COMPARISON: None FINDINGS: Alignment of the reverse total right shoulder arthroplasty is in anatomic. There is no per iprosthetic fracture or unexpected radiopaque foreign body. There are skin cande and surgical drain s. Low lung volumes are noted. Hazy right apical opacity is probably artifactual. IMPRESSION: Expected findings following reverse total right shoulder arthroplasty. ACT 112: Negative or not required by law. Electronically signed by: Zack Recinos M.D. 09/18/2023 11:35 AM
[2023-09-18] MEDS ORDERED: METOCLOPRAMIDE HCL INJ 5 MG/ML 2 ML VIAL IV PRN (12:34)
[2023-09-18] MEDS ORDERED: oxyCODONE HCL IR 5 MG TAB (IMMEDIATE RELEASE) PO PRN (12:34)
[2023-09-18] MEDS ORDERED: SODIUM CHLORIDE 0.9% 1,000 ML IV SCH (12:34)
[2023-09-18] MEDS ORDERED: bisacodyL 10 MG SUPP PR PRN (12:34)
[2023-09-18] MEDS ORDERED: NALOXONE HCL 0.4 MG/1 ML VIAL/CARP IV PRN (12:34)
[2023-09-18] MEDS ORDERED: HYDROmorphone INJ 0.5 MG/0.5 ML SYR IV PRN (12:34)
[2023-09-18] MEDS ORDERED: MAGNESIUM HYDROXIDE SUSP 30 ML UDC PO PRN (12:34)
--- NOTE | 2023-09-18 12:37 | Anesthesiology Progress Note ---
Date of Service September 18, 2023 Anesthesia Post Procedure Vital Signs Vital Signs: Temp Pulse Pulse Resp BP Pulse Ox O2 Del Method 09/18/23 12:24 36.6 C 76 18 121/78 95 Room Air 09/18/23 12:05 36.2 C L 78 22 126/75 95 Oxymask 09/18/23 11:50 81 21 129/77 95 Oxymask 09/18/23 11:40 78 24 128/73 96 Oxymask 09/18/23 11:30 81 17 126/81 96 Oxymask 09/18/23 11:20 92 H 22 116/68 94 Oxymask 09/18/23 11:11 36.0 C L 90 21 136/76 96 Oxymask 09/18/23 06:15 36.8 C 72 20 168/89 H 98 Room Air O2 Flow Rate 09/18/23 12:24 09/18/23 12:05 0 09/18/23 11:50 2 09/18/23 11:40 4 09/18/23 11:30 4 09/18/23 11:20 4 09/18/23 11:11 6 09/18/23 06:15 Pain Intensity Right Shoulder: Pain Intensity: 4 Transfer of Care Handoff Completed per policy Notes Mental Status: alert / awake / arousable and participated in evaluation Patient Amnestic to Procedure: Yes Nausea / Vomiting: adequately controlled Pain: adequately controlled Airway Patency, RR, SpO2: stable & adequate BP & HR: stable & adequate Hydration State: stable & adequate Anesthetic Complications: no major complications apparent
--- NOTE | 2023-09-18 13:03 | Hospitalist Consultation ---
Date of Consultation September 18, 2023 Assessment & Plan (1) S/P shoulder surgery: This is a 68-year-old male with PMH of hypertension, hyperlipidemia, hypothyroidism, history of CAD status post stent who is POD #0 s/p R shoulder reverse total shoulder arthroplasty, biceps tenodesis, repair infraspinatus tendon rotator cuff, debridement rotator cuff, removal deep hardware (multiple suture anchors and suture material) by Dr. Cottrell. POD #0 s/p R shoulder reverse total shoulder arthroplasty, biceps tenodesis, repair infraspinatus tendon rotator cuff, debridement rotator cuff, removal deep hardware (multiple suture anchors and suture material) by Dr. Cottrell. Per ortho for pain control, wound care, anticoagulation and activities Monitor H&H (hgb 14.4, EBL 200ml), continue incentive spirometry, PT/OT when appropriate (2) CAD (coronary artery disease): H/o stent in January 2022. Follows with [facility]. Negative pre-op stress echo. Plavix resumed by surgical service for tomorrow, continue aspirin, statin (3) Hypothyroidism: Chronic, stable. Continue levothyroxine (4) Hyperlipidemia: Chronic, stable. Continue statin (5) Hypertension: BP mildly elevated at 143/81 postoperatively. Optimize pain control. Resume home lisinopril in the a.m. DVT Ppx: per surgery Code status: FULL PCP: Kodak Guzman Thank you for this consultation. We will follow the patient with you during their hospital stay. You can reach a member of the [facility] Hospitalist Team 22/04 via [employer]. Patient seen in collaboration with Dr. Matthews. Please see addendum. Supervising Physician Co-Signing Physician Notes I have seen and discussed the case with the collaborating DOREEN. I agree with the above H&P. I have reviewed and confirmed the patients medical history, the findings on physical examination, and the patients diagnosis and treatment plan with Jorge LOGAN and agree with the information documented. In short, Mr Kaplan is a 68 year old gentleman who is now POD 0 R shoulder reverse total shoulder arthroplasty. He appears to have tolerated procedure. Chronic conditions stable. Monitor for post op anemia. Rest of plan as above. History of Present Illness Reason for Consultation: post op med mgmt Attending Physician: Pablo Cottrell MD History of Present Illness This is a 68-year-old male with PMH of hypertension, hyperlipidemia, hypothyroidism, history of CAD status post stent who is POD #0 s/p R shoulder reverse total shoulder arthroplasty, biceps tenodesis, repair infraspinatus tendon rotator cuff, debridement rotator cuff, removal deep hardware (multiple suture anchors and suture material) by Dr. Cottrell. Feeling well postoperatively but still has anesthetic block in place. Tolerating diet without issue. No nausea or vomiting. Denies any fever, chills, headache, lightheadedness, chest pain, shortness of breath, abdominal pain, dysuria, diarrhea or constipation. Follows with D[facility]ay[facility] of [facility] for primary care and [facility] for cardiology. Saw DOREEN Almonte for pre-op eval and underwent nuclear stress test that was negative. Plavix held for 7 days pre- operatively and to be resumed afterwards at discretion of surgeon. Aspirin to be continued without interruption. Allergies Allergy/AdvReac Type Severity Reaction Status Date / Time No Known Allergies Allergy Verified 09/18/23 06:18 Home Medications Medication Instructions Recorded Confirmed Type levothyroxine 125 mcg tablet 125 mcg PO QAM 07/07/21 09/18/23 History lisinopril 10 mg tablet 10 mg PO QAM 07/07/21 09/18/23 History aspirin 81 mg tablet,delayed 81 mg PO HS 02/21/22 09/18/23 History release aizwtlk-ldsuzfcaoaplq-rnsqrwca 250 1 tab PO Q6H PRN Pain 02/21/22 09/18/23 History mg-250 mg-65 mg tablet (Excedrin Extra Strength) rosuvastatin 20 mg tablet 20 mg PO PM 02/21/22 09/18/23 History clopidogrel 75 mg tablet 75 mg PO QAM #30 tabs 02/23/22 09/18/23 Rx acetaminophen 500 mg tablet 500 mg PO QID PRN Headache 09/18/23 09/18/23 History acetaminophen 500 mg tablet 1,000 mg (2 x 500 mg) PO Q8 #60 09/18/23 Rx (Tylenol Extra Strength) tabs cefadroxil 500 mg capsule 500 mg PO BID #28 caps 09/18/23 Rx oxycodone 5 mg tablet 5 - 10 mg (1 - 2 x 5 mg) PO 09/18/23 Rx .Q4h-6h PRN pain #30 tabs Patient History Medical History (Updated 09/18/23 @ 17:08 by Maddie Patel PA-C) CAD (coronary artery disease) Chronic back pain denies change or worsening History of COVID-19 Jun 30, 2023 > home test, tested 3 days later and was negative, sore throat, headache, all resolved Obesity Hypothyroidism Pulmonary embolism 2013 S/P SHOULDER SURGERY > no further issues Migraine HX Hyperlipidemia Hypertension controlled, stable per pt Surgical History (Updated 09/18/23 @ 17:08 by Madide Patel PA-C) History of tooth extraction History of heart artery stent January 2022 > [facility] > x1 stent History of cardiac cath January 2022 > [facility] > x1 stent History of hand surgery right cyst removal History of hand surgery tendon repair > left ring finger History of repair of rotator cuff bilat History of colonoscopy X 4 History of arthroscopy R/L KNEES Family History (Updated 09/18/23 @ 17:06 by Maddie Patel PA-C) Mother Family history of diabetes mellitus Other Heart disease Social History Smoking Status: Never smoker Second Hand Exposure: No; Do You Dip or Chew Tobacco: No (hx of, quit 6 yrs ago); Tobacco Cessation Education Requested by Patient: No Hx Alcohol Use: Yes Alcohol type: beer Hx Substance Use: No Preferred Language: Thai Communication Ability: Effective Regional Commercial Sales Manager Required: No Beliefs That Will Affect Care: None Current Living Situation: Spouse 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 Physical Exam Physical Exam: General Appearance: WD/WN, vitals as above, NAD, sitting up in bed, pleasant, conversing easily Head: normocephalic, atraumatic Eyes: normal inspection, PERRL, conjunctivae normal ENT: external ear and nose normal, oropharynx normal Neck: normal visual inspection Respiratory: normal respiratory effort, lungs clear to auscultation Cardiovascular: regular rate, rhythm, no murmur, normal peripheral pulses, no BLE edema Abdomen/GI: normal bowel sounds, soft, nontender, no hepatosplenomegaly Extremities/Musculoskeletal: RUE in sling, distal RUE NVI, no cyanosis or clubbing, extremities motor strength 5/5 Neurologic: PERRL, EOMI, no dysarthria, CN's II-XI intact bilaterally and moves all extremities Psychiatric: A+Ox3, euthymic affect Skin: no rashes, normal color, warm/dry Results & Data Results & Data Vital Signs (Past 12 Hours) Vital Signs Temp Pulse Pulse Resp BP Pulse Ox O2 Del Method 09/18/23 12:51 36.5 C 84 20 142/82 H 95 Room Air 09/18/23 12:24 36.6 C 76 18 121/78 95 Room Air 09/18/23 12:05 36.2 C L 78 22 126/75 95 Oxymask 09/18/23 11:50 81 21 129/77 95 Oxymask 09/18/23 11:40 78 24 128/73 96 Oxymask 09/18/23 11:30 81 17 126/81 96 Oxymask 09/18/23 11:20 92 H 22 116/68 94 Oxymask 09/18/23 11:11 36.0 C L 90 21 136/76 96 Oxymask 09/18/23 06:15 36.8 C 72 20 168/89 H 98 Room Air O2 Flow Rate 09/18/23 12:51 09/18/23 12:24 09/18/23 12:05 0 09/18/23 11:50 2 09/18/23 11:40 4 09/18/23 11:30 4 09/18/23 11:20 4 09/18/23 11:11 6 09/18/23 06:15 (5) Hypertension Hypertension type: unspecified Qualified Code(s): I10 - Essential (primary) hypertension
[2023-09-18] MEDS: ACETAMINOPHEN 500 MG TAB PO SCH ×2 (14:19→21:24)
[2023-09-18] MEDS: ceFAZolin 2000MG 2,000 MG/15 ML SYR IV SCH (17:45)
[2023-09-18] MEDS: DOCUSATE SODIUM 100 MG CAP PO SCH (20:17)
[2023-09-18] MEDS: GABAPENTIN 100 MG CAP PO SCH (20:17)
[2023-09-18] MEDS ORDERED: ASPIRIN 81 MG ECTAB PO SCH (21:00)
[2023-09-18] MEDS ORDERED: ROSUVASTATIN CALCIUM 20 MG TAB PO SCH (21:00)
[2023-09-18] MEDS ORDERED: SENNA 8.6 MG TAB PO SCH (21:00)
[2023-09-19] MEDS: ceFAZolin 2000MG 2,000 MG/15 ML SYR IV SCH (00:25)
[2023-09-19] MEDS: ACETAMINOPHEN 500 MG TAB PO SCH (05:21)
[2023-09-19] MEDS ORDERED: LEVOTHYROXINE SODIUM 125 MCG TABLET PO SCH (06:30)
[2023-09-19 06:53] LABS: Basophils # (auto) 0.02 K/uL (0.00-0.20); Basophils % (auto) 0.2 %; Hematocrit (blood only) 40.2 % (42.0-52.0); Hemoglobin 13.1 g/dl (14.0-18.0); Immature Granulocytes # (auto) 0.07 K/uL (0.01-0.20); Immature Granulocytes % (auto) 0.6 %; Lymphocytes # (auto) 1.21 K/uL (1.20-3.40); Lymphocytes % (auto) 10.1 %; Mean Corpuscular Hemoglobin 29.7 pg (25.0-34.0); Mean Corpuscular Hgb Conc 32.6 g/dL (32.0-36.0); Mean Corpuscular Volume 91.2 fL (80.0-100.0); Mean Platelet Volume 10.2 fL (9.4-12.4); Monocytes # (auto) 0.83 K/uL (0.11-0.59); Monocytes % (auto) 6.9 %; Neutrophils # (auto) 9.83 K/uL (1.40-6.50); Neutrophils % (auto) 82.2 %; Platelet Count 260 K/uL (130-400); RDW Coefficient of Variation 13.6 % (11.5-14.5); Red Blood Count 4.41 M/uL (4.70-6.10); White Blood Count 11.96 K/ul (4.8-10.8)
--- NOTE | 2023-09-19 06:54 | Orthopedic Progress Note ---
Date of Service September 19, 2023 Assessment & Plan (1) S/P shoulder surgery: Plan: Postop day #1 right reverse total shoulder arthroplasty -PT/OT: No formal therapy at this time. May do elbow/wrist/hand motion, shrugs, pendulums. No shoulder range of motion. -DVT prophylaxis: SCDs, home aspirin and clopidogrel -Pain management as written -A.m. labs are pending. Will review once available. -Discharge planning: Plan to discharge home as long as continues to progress well today. Will review labs once available. Plan on discharge home. Admission and Anticipated Discharge Date Admission Date: September 18, 2023 Subjective Patient is postop day 1 right reverse total shoulder. He is doing well this morning. Minimal pain. He has no other complaints. Denies chest pain, shortness of breath, nausea/vomiting/diarrhea, headaches or dizziness. Review of Systems Review of Systems: All systems reviewed & are unremarkable except as noted in Subjective Physical Exam Physical Exam: Right shoulder: Dressing is clean, dry, intact. Sling in place. Fingers are mobile with good wrist extension. Distal neurovascular status and sensation is grossly intact. Constitutional: WD/WN, vitals as above Results & Data Vital Signs (Past 12 Hours) Vital Signs Temp Pulse Resp BP Pulse Ox O2 Del Method 09/19/23 03:43 36.6 C 67 18 155/78 H 96 Room Air 09/19/23 00:29 36.5 C 74 16 146/80 H 92 Room Air 09/18/23 20:05 Room Air 09/18/23 19:43 36.8 C 66 18 136/78 96 Room Air
[2023-09-19 07:20] LABS: Calcium 10.6 mg/dl (8.6-10.3); Creatinine Clr Calc Pharmacy 93.4 ml/min; Est GFR (Non-African American) 71.6 ml/min; Potassium 4.3 mmol/L (3.5-5.1)
[2023-09-19] MEDS: DOCUSATE SODIUM 100 MG CAP PO SCH (08:04)
[2023-09-19] MEDS: GABAPENTIN 100 MG CAP PO SCH (08:04)
[2023-09-19] MEDS ORDERED: lisinopril 10 MG TAB PO SCH (09:00)
[2023-09-19] MEDS ORDERED: CLOPIDOGREL BISULFATE 75 MG TAB PO SCH (09:00)
[2023-09-19] MEDS ORDERED: MULTIVITAMIN TAB PO SCH (09:00)
--- NOTE | 2023-09-19 10:53 | Hospitalist Progress Note ---
Date of Service September 19, 2023 Assessment & Plan (1) S/P shoulder surgery: Plan: This is a 68-year-old male with PMH of hypertension, hyperlipidemia, hypothyroidism, history of CAD status post stent who is POD #1 s/p R shoulder reverse total shoulder arthroplasty, biceps tenodesis, repair infraspinatus tendon rotator cuff, debridement rotator cuff, removal deep hardware (multiple suture anchors and suture material) by Dr. Cottrell. POD #1 s/p R shoulder reverse total shoulder arthroplasty, biceps tenodesis, repair infraspinatus tendon rotator cuff, debridement rotator cuff, removal deep hardware (multiple suture anchors and suture material) by Dr. Cottrell. Per ortho for pain control, wound care, anticoagulation and activities Monitor H&H (hgb stable at 13.1 today, pre-op hgb 14.4), continue incentive spirometry, PT/OT as appropriate (2) CAD (coronary artery disease): Plan: H/o stent in January 2022. [facility] Negative pre-op stress echo. Plavix resumed, continue aspirin, statin (3) Hypothyroidism: Plan: Chronic, stable. Continue levothyroxine (4) Hyperlipidemia: Plan: Chronic, stable. Continue statin (5) Hypertension: Plan: Home lisinopril resumed post-operatively DVT Ppx: per surgery Code status: FULL PCP: Kodak Guzman Thank you for this consultation. We will follow the patient with you during their hospital stay. You can reach a member of the [facility] Hospitalist Team 22/04 via [employer]. Patient seen in collaboration with Dr. Javier. Please see addendum. Admission and Anticipated Discharge Date Admission Date: September 18, 2023 Supervising Physician Co-Signing Physician Notes Patient seen and examined independently. Discussed with above provider. Patient plan to be discharged home. Recommended to resume medications and follow-up with PCP. Subjective Patient seen and examined in 307 in follow up for right reverse total shoulder (POD#1). Feeling good today with minimal pain. Sitting upright, waiting for discharge by surgical service. No other complaints overnight. Denies F/C, headache, chest pain, shortness of breath, nausea/vomiting/diarrhea. Urinating without issue, passing flatus. Review of Systems Review of Systems: At least ten systems reviewed and negative except as noted in the HPI. Physical Exam Physical Exam: Gen: WD/WN, NAD, sitting in bedside chair, A&Ox3 HEENT: Normocephalic, atraumatic, conjunctivae moist, sclerae anicteric, mucous membranes moist Lung: Clear to Auscultation bilaterally, no wheezes/rales/rhonchi Heart: Regular rate, regular rhythm, no murmurs, rubs, or gallops Abdomen: Soft, NT, ND +BS x 4 Extremities: RUE in sling, distal RUE NVI, extremities motor strength 5/5 no edema Skin: Warm, no rash Results & Data Results & Data Vital Signs (Past 12 Hours) Vital Signs Temp Pulse Resp BP Pulse Ox O2 Del Method 09/19/23 07:29 36.3 C L 66 16 147/83 H 95 Room Air 09/19/23 03:43 36.6 C 67 18 155/78 H 96 Room Air 09/19/23 00:29 36.5 C 74 16 146/80 H 92 Room Air Laboratory Results Short CBC 09/19/23 Range/Units 06:07 WBC 11.96 H (4.8-10.8) K/ul Hgb 13.1 L (14.0-18.0) g/dl Hct 40.2 L (42.0-52.0) % Plt Count 260 (130-400) K/uL BMP 09/19/23 06:07 Sodium 133 L Potassium 4.3 Chloride 100 Carbon Dioxide 25 BUN 20 Creatinine 1.05 Glucose 146 H Calcium 10.6 H Diagnostic Findings Shoulder X-Ray 09/18/23 11:11 XR shoulder RT min 2V routine CLINICAL HISTORY: Post shoulder surgery. COMPARISON: None FINDINGS: Alignment of the reverse total right shoulder arthroplasty is in anatomic. There is no periprosthetic fracture or unexpected radiopaque foreign body. There are skin cande and surgical drains. Low lung volumes are noted. Hazy right apical opacity is probably artifactual. IMPRESSION: Expected findings following reverse total right shoulder arthroplasty. ACT 112: Negative or not required by law. Electronically signed by: Zack Recinos M.D. 09/18/2023 11:35 AM (5) Hypertension Hypertension type: unspecified Qualified Code(s): I10 - Essential (primary) hypertension
--- NOTE | 2023-09-19 16:40 | Discharge Summary ---
Date of Service September 19, 2023 Admission HPI Per Admitting Provider 68-year-old male with past medical history significant for hypertension, high cholesterol, CAD with stents, hypothyroidism, history of PE who presents with ongoing right shoulder pain. He does have past history of rotator cuff repair with failure of repair. Pain is interfering with his daily activities. He has failed conservative measures and would like to proceed with surgical management. Who presents with patient denies headaches, sweats, fevers, chills, double vision, blurred vision, cough, sore throat, dysphagia, chest pain, sob, wheezing, n/v/d/c, numbness, tingling, fatigue, urinary symptoms, mood d isorders. ROS positive for right shoulder pain and stiffness. Admission Exam Per Admitting Provider Constitutional: well developed and well nourished; no acute distress Eyes: PERRL, conjunctivae normal, anicteric sclerae ENMT: external ear and nose normal, oropharynx normal Neck: trachea midline, no thyromegaly Respiratory: normal respiratory effort, lungs clear to auscultation Cardiovascular: RRR, no murmur, no edema Musculoskeletal: Right shoulder: Tenderness anterolateral acromion. Positive impingement signs. Painful range of motion. Forward flexion to 180 degrees, abduction to 90 degrees actively. Pain and weakness with strength testing. 4 -/5 abduction, 4+/5 internal rotation, 3+/5 external rotation. Skin: no rashes, warm and dry Neurologic: patellar DTR's 2+ bilat, sensation intact Psychiatric: A+Ox3, euthymic affect Principal Diagnosis Right shoulder rotator cuff arthropathy Discharge Exam Right shoulder: Dressing is clean, dry, intact. Sling in place. Fingers are mobile with good wrist extension. Distal neurovascular status and sensation is grossly intact. Constitutional WD/WN, vitals as above Discharge Data Allergies Allergy/AdvReac Type Severity Reaction Status Date / Time No Known Allergies Allergy Verified 09/18/23 06:18 Consultations 09/16/23 13:55 Consult Hospitalist Routine Procedures Performed Operation Date: 09/18/23 07:15 Actual Procedures p Right Total Shoulder Arthroplasty Reverse, Biceps Tenodesis(Right) - Pablo Cottrell MD Ordered Studies 09/18/23 05:00 US - OR guided needle placemen Routine 09/18/23 10:32 US - OR guided needle placemen Stat Hospital Course (1) S/P shoulder surgery: Postop day #1 right reverse total shoulder arthroplasty -PT/OT: No formal therapy at this time. May do elbow/wrist/hand motion, shrugs, pendulums. No shoulder range of motion. -DVT prophylaxis: SCDs, home aspirin and clopidogrel -Pain management as written -A.m. labs are pending. Will review once available. -Discharge planning: Plan to discharge home as long as continues to progress well today. Will review labs once available. Plan on discharge home. Lab Results 09/19/23 Range/Units 06:07 WBC 11.96 H (4.8-10.8) K/ul RBC 4.41 L (4.70-6.10) M/uL Hgb 13.1 L (14.0-18.0) g/dl Hct 40.2 L (42.0-52.0) % MCV 91.2 (80.0-100.0) fL MCH 29.7 (25.0-34.0) pg MCHC 32.6 (32.0-36.0) g/dL RDW Std Deviation 46.0 (36.4-46.3) fL RDW Coeff of Erika 13.6 (11.5-14.5) % Plt Count 260 (130-400) K/uL MPV 10.2 (9.4-12.4) fL Immature Gran % (Auto) 0.6 % Neut % (Auto) 82.2 % Lymph % (Auto) 10.1 % [place] % (Auto) 6.9 % Eos % (Auto) 0.0 % Baso % (Auto) 0.2 % Neut # (Auto) 9.83 H (1.40-6.50) K/uL Lymph # (Auto) 1.21 (1.20-3.40) K/uL [place] # (Auto) 0.83 H (0.11-0.59) K/uL Eos # (Auto) 0.00 (0.00-0.50) K/uL Baso # (Auto) 0.02 (0.00-0.20) K/uL Immature Gran # (Auto) 0.07 (0.01-0.20) K/uL Sodium 133 L (136-145) mmol/L Potassium 4.3 (3.5-5.1) mmol/L Chloride 100 (98-107) mmol/L Carbon Dioxide 25 (21-32) mmol/L Anion Gap 8 (3-11) BUN 20 (6-23) mg/dl Creatinine 1.05 (0.6-1.4) mg/dl Est Cr Clr Drug Dosing 93.4 ml/min Est GFR ( Amer) 83.0 ml/min Est GFR (Non-Af Amer) 71.6 ml/min BUN/Creatinine Ratio 19.0 (10-20) Glucose 146 H (70-99(Fasting)) mg/dl Calcium 10.6 H (8.6-10.3) mg/dl Total Time Total Time Spent Total Time Spent (In Minutes): 20 Discharge Plan Discharge Items Patient Disposition: Home - Self-Care Reason For Visit: Right Shoulder Osteoarthritis, Right Shoulder Ravinder Discharge Diagnosis: Right shoulder rotator cuff arthropathy Activity: Per Instructions section Non-emergency contact: Surgeon Call non-emergency contact if: you have any medication questions, your pain is not controlled, your pain is concerning for you, you have a fever, your temperature is above 101, your wound has increased redness and your wound has increased drainage Follow-up/Referrals: Cayden Zayas [Primary Care Provider] - Diet: Regular Addtl Attending Provider Instructions: ACTIVITY RECOMMENDATIONS: SELF CARE INSTRUCTIONS AFTER TOTAL SHOULDER ARTHROPLASTY REVERSE A. You may do daily exercises as taught in physical therapy while in hospital. No lifting with the operative arm. B. You are to wear your sling/immobilizer at all times EXCEPT when performing your daily exercises and for hygiene purposes. C. You may perform dry, daily dressing changes. Please keep your incision covered. You may shower 48 hours after surgery. Do not apply soap or any ointment/lotions directly over incision. Do not soak incision in bath tub/swimming pool. D. You may use ice as needed to operative shoulder. SPECIAL CARE INSTRUCTIONS: VERY IMPORTANT TO READ AND REVIEW A. There are a few signs you need to watch for after you are home. Call [facility] at [phone] if you experience any of the followin. Increased severe shoulder pain. Some pain is expected especially when you exercise. 2. Increased swelling in you shoulder or arm; pain or swelling in either upper extremity. 3. Any fluid drainage from the incision. 4. Shortness of breath or chest pain. B. Please call [facility] at [phone] if you have any questions or concerns about your operation or recovery. C. Call your physician if: 1. Temperature is greater than 101 degrees (F). 2. Pain is not relieved by prescribed pain medications. 3. Increase drainage or redness from incision. 4. Unanswered questions or concerns. FOLLOW UP VISIT: Please call [facility] at [phone] to schedule a follow up appointment with Dr. Cottrell or his PA in 12-14 days from your surgery date. Stand-Alone Forms: My [facility], Pain - Opioid Pain Management, Smoking Cessation Medications and DC Order Prescriptions: New acetaminophen [Tylenol Extra Strength] 500 mg Tablet 1,000 mg PO Q8 Qty: 60 0RF oxycodone 5 mg Tablet 5 - 10 mg PO .Q4h-6h MDD 6 PRN (Reason: pain) Qty: 30 0RF Rx Instructions: Ongoing therapy, Dr. Cottrell supervising cefadroxil 500 mg capsule 500 mg PO BID Qty: 28 0RF Continued levothyroxine 125 mcg Tablet 125 mcg PO QAM lisinopril 10 mg Tablet 10 mg PO QAM aspirin 81 mg tablet,delayed release (DR/EC) 81 mg PO HS rosuvastatin 20 mg tablet 20 mg PO PM clopidogrel 75 mg Tablet 75 mg PO QAM Qty: 30 0RF Discontinued Excedrin Extra Strength 250-250-65 mg Tablet 1 tab PO Q6H PRN (Reason: Pain) acetaminophen 500 mg Tablet 500 mg PO QID PRN (Reason: Headache) Discharge Orders: Discharge Order (Routine); Ordered 09/19/23 Ordered By: Alexis Gordon/Other Patient Handouts: DVT Post Op Prevention, Reverse Total Shoulder Replacement Admission Data Admit Date/Time: 09/18/23 11:11 Attending Provider: Pablo Cottrell Admit Provider: Pablo Cottrell Primary Care Provider: Cayden Zayas Other Providers: John Roberts; Raymon Javier; Maddie Patel Other Interventions: Discharge Summary Assessment (RN) Last Done: 09/19/23 09:51
== END 2023-09-19 10:52 | disposition home or self-care (01) ==
LOC: ASU 05:29 → 3E 05:29